=== PATIENT | male | born 1955 | race Caucasian/White ===

== ENCOUNTER 2020-03-28 19:08 | Emergency (ER) | payer BC ==
--- NOTE | 2020-03-28 19:40 | RAD REPORT ---
EXAM DESCRIPTION: RAD - Humerus Left - 03/28/2020 7:34 pm CLINICAL HISTORY: PAIN COMPARISON: No comparisons FINDINGS: Oblique mildly displaced fracture of the shaft of the humerus is seen.
--- NOTE | 2020-03-28 19:46 | RAD REPORT ---
EXAM DESCRIPTION: CT - [id number] - 03/28/2020 7:35 pm CLINICAL HISTORY: Trauma, head and neck injury. Fall injury COMPARISON: No comparisons TECHNIQUE: Axial 5 mm thick images of the head were obtained. Axial 2 mm thick images of the cervical spine were obtained with sagittal and coronal reconstruction images generated and reviewed. All CT scans are performed using dose optimization technique as appropriate and may include automated exposure control or mA/KV adjustment according to patient size. FINDINGS: CT HEAD WITHOUT CONTRAST: No acute hemorrhage, hydrocephalus or extra-axial collection is identified.No areas of brain edema or midline shift. The paranasal sinuses and mastoids are clear.The calvarium is intact. CT CERVICAL SPINE WITHOUT CONTRAST: No fracture or subluxation.Moderate multilevel degenerative cervical spondylosis.No prevertebral soft tissues swelling is identified. IMPRESSION: No acute intracranial or cervical spine findings.
--- NOTE | 2020-03-28 20:05 | ER ---
Nurse's Notes [facility] Name: William Romero Age: 64 yrs Sex: Male : 1955 Arrival Date: 03/28/2020 Time: 19:09 Bed 18 Private MD: Diagnosis: Displaced oblique fracture of shaft of humerus, left arm;Fall on same level from slipping, tripping and stumbling;Abrasion of unspecified part of head Presentation: 03/28 19:12 Chief complaint: EMS states: pt fell while walking, reports fell from a standing sg position while walking, miss step and fell forward, hitting left side of head with no LOC reported, pt reports taking baby aspirin 81 mg daily, states having pain in the left arm and left elbow, a splint has been applied by EMS DIFFERENTIAL TESTER. Abrasion noted to the left side of forehead with no active bleeding noted at this time. Coronavirus screen: Client denies travel out of the [place] in the last 14 days. At this time, the client does not indicate any symptoms associated with coronavirus-19. Ebola Screen: Patient negative for fever greater than or equal to 101.5 degrees Fahrenheit, and additional compatible Ebola Virus Disease symptoms Patient denies exposure to infectious person. Patient denies travel to an Ebola-affected area in the 21 days before illness onset. No symptoms or risks identified at this time. Initial Sepsis Screen: Does the patient meet any 2 criteria? No. Patient's initial sepsis screen is negative. Does the patient have a suspected source of infection? No. Patient's initial sepsis screen is negative. Risk Assessment: Do you want to hurt yourself or someone else? Patient reports no desire to harm self or others. Onset of symptoms was March 28, 2020. Care prior to arrival: Splint applied. Activity prior to arrival: None. Mechanism of Injury: Fall from standing position. Transition of care: patient was not received from another setting of care. 19:12 Acuity: KUSH 3 sg 19:12 Method Of Arrival: EMS: [facility] sg 19:45 Trauma event details: Injury occurred in the [facility], Injury occurred: at [facility] home. Injury occurred: March 28, 2020. 20:26 Care prior to arrival: None. mg2 20:27 Mechanism of Injury: Fall. [facility] Trauma Activation: Alert Physician: ED Physician; Name: ; Notified At: ; Arrived At: Physician: General Surgeon; Name: ; Notified At: ; Arrived At: Physician: Radiology; Name: ; Notified At: ; Arrived At: Physician: Respiratory; Name: ; Notified At: ; Arrived At: Physician: Lab; Name: ; Notified At: ; Arrived At: Historical: - Allergies: 19:15 No Known Allergies; sg - Home Meds: 19:15 Aspirin Oral [Active]; Metoprolol Tartrate Oral [Active]; Wellbutrin Oral [Active]; sg - PMHx: 19:15 Hypertension; Depression; sg - Immunization history:: Adult Immunizations up to date. - Social history:: Smoking status: Patient denies any tobacco usage or history of. - Immunization history: Last tetanus immunization: unknown. Screenin:43 Abuse screen: Denies threats or abuse. Denies injuries from another. Nutritional mg2 screening: No deficits noted. Tuberculosis screening: No symptoms or risk factors identified. Fall Risk Fall in past 12 months (25 points). Primary Survey: 19:44 NO uncontrolled hemorrhage observed. A: The patient is alert. Airway: patent, No mg2 supplemental oxygen in use on arrival. Breathing/Chest: Respiratory pattern: regular, Respiratory effort: spontaneous, unlabored, Breath sounds: clear, bilaterally. Circulation: Skin color: pink. Disability Alert. Exposure/Environment: All clothing and personal items were removed. Forensic evidence collection is not deemed to be indicated at this time. Items placed in patient belonging bag. There is no evidence of uncontrolled external bleeding. Obvious injury(ies) are noted at this time: left humerus fracture. 20:26 Reassessment Airway Airway Patent Breathing/Chest Respiratory pattern Regular mg2 Respiratory effort Spontaneous Unlabored Breath sounds Clear Circulation Color [place] Disability Alert. Secondary Survey: 19:45 HEENT: Head Other abrasion in the forehead. Gastrointestinal: No deficits noted. : No mg2 deficits noted. Musculoskeletal: Circulation, motion, and sensation intact. Capillary refill < 3 seconds. Assessment: 19:42 General: Appears in no apparent distress. comfortable, Behavior is calm, cooperative. mg2 Pain: Complains of pain in face and left arm Pain does not radiate. Pain currently is 2 out of 10 on a pain scale. Quality of pain is described as aching. Neuro: Level of Consciousness is awake, alert, obeys commands, Oriented to person, place, time, situation. Cardiovascular: Capillary refill < 3 seconds Patient's skin is warm and dry. Respiratory: Airway is patent Respiratory effort is even, unlabored, Respiratory pattern is regular, symmetrical. GI: No signs and/or symptoms were reported involving the gastrointestinal system. : No signs and/or symptoms were reported regarding the genitourinary system. EENT: No signs and/or symptoms were reported regarding the EENT system. Derm: Skin is pink, warm \T\ dry. normal, Wound noted forehead Wound is abrasion. Musculoskeletal: Circulation, motion, and sensation intact. Capillary refill < 3 seconds. Vital Signs: 19:12 BP 152 / 73; Pulse 89; Resp 16; Temp 97.7; Pulse Ox 100% on R/A; sg 20:26 BP 150 / 80; Pulse 80; Resp 18; Temp 98; Pulse Ox 100% on R/A; mg2 Brody Coma Score: 19:47 Eye Response: spontaneous(4). Verbal Response: oriented(5). Motor Response: obeys mg2 commands(6). Total: 15. Trauma Score (Adult): 19:47 Eye Response: spontaneous(1); Verbal Response: oriented(1); Motor Response: obeys mg2 commands(2); Systolic BP: > 89 mm Hg(4); Respiratory Rate: 10 to 29 per min(4); [place] Score: 15; Trauma Score: 12 ED Course: 19:09 Patient arrived in ED. mw2 19:12 Arm band placed on. sg 19:14 Triage completed. sg 19:15 Jerad Shen NP is PHCP. pm1 19:15 Brad Telles MD is Attending Physician. pm1 19:35 Humerus Left XRAY In Process Unspecified. EDMS 19:36 CT Head C Spine In Process Unspecified. EDMS 19:42 Artis Russell, ALEX is Primary Nurse. mg2 19:43 Patient has correct armband on for positive identification. Pulse ox on. NIBP on. Door mg2 closed. Warm blanket given. Ice pack to injury. 19:43 No provider procedures requiring assistance completed. Patient did not have IV access mg2 during this emergency room visit. 19:47 Patient maintains SpO2 saturation greater than 95% on room air. Thermoregulation: warm mg2 blanket given to patient. 20:25 Orthoglass splint: Coaptation splint applied on other. checked by the provider prior to mg2 dc. Administered Medications: 20:00 Drug: Barnhart 10 mg-325 mg 1 tabs Route: PO; mg2 20:15 Follow up: Response: No adverse reaction mg2 Intake: 19:47 PO: 0ml; Total: 0ml. mg2 Outcome: 20:05 Discharge ordered by . pm1 20:26 Discharged to home ambulatory. mg2 20:26 Condition: stable 20:26 Discharge instructions given to patient, Instructed on discharge instructions, follow up and referral plans. Demonstrated understanding of instructions, follow-up care, splint care. 20:27 Patient's length of stay was not longer than 2 hours. mg2 20:27 Patient left the ED. mg2 Signatures: Dispatcher [employer] EDWilliam Gamino, RN RN Jerad Carver NP HEARING AND SPEECH ASSISTANT pm1 Janice Kahn mw2 Artis Russell RN RN mg2
--- NOTE | 2020-03-28 20:05 | EDPHYS ---
Physician Documentation [facility] Name: William Romero Age: 64 yrs Sex: Male : 1955 Arrival Date: 03/28/2020 Time: 19:09 Bed 18 Private MD: ED Physician Brad Telles HPI: 03/28 19:36 This 64 yrs old Male presents to ER via EMS with complaints of Fall Injury. pm1 19:36 Details of fall: The patient fell from an upright position, while walking, and struck a pm1 concrete surface. Onset: The symptoms/episode began/occurred just prior to arrival. Associated injuries: The patient sustained left bicep. Severity of symptoms: in the emergency department the symptoms have improved, with sling by EMS. The patient has not experienced similar symptoms in the past. Patient was walking a missed a step and fell forward. Landed on his left arm and presenting with pain to left biceps area. Also hit his head on the fall. Has abrasion to left side of forehead. No LOC, headache, or neck pain. Historical: - Allergies: 19:15 No Known Allergies; sg - Home Meds: 19:15 Aspirin Oral [Active]; Metoprolol Tartrate Oral [Active]; Wellbutrin Oral [Active]; sg - PMHx: 19:15 Hypertension; Depression; sg - Immunization history:: Adult Immunizations up to date. - Social history:: Smoking status: Patient denies any tobacco usage or history of. - Immunization history: Last tetanus immunization: unknown. ROS: 19:36 Constitutional: Negative for fever, chills, and weight loss, Neck: Negative for injury, pm1 pain, and swelling, Cardiovascular: Negative for chest pain, palpitations, and edema, Respiratory: Negative for shortness of breath, cough, wheezing, and pleuritic chest pain, Abdomen/GI: Negative for abdominal pain, nausea, vomiting, diarrhea, and constipation, Back: Negative for injury and pain. 19:36 Skin: Negative for injury, rash, and discoloration, Neuro: Negative for headache, weakness, numbness, tingling, and seizure. 19:36 MS/extremity: Positive for pain, of the left bicep. Exam: 19:36 Constitutional: This is a well developed, well nourished patient who is awake, alert, pm1 and in no acute distress. 19:36 Back: No spinal tenderness. No costovertebral tenderness. Full range of motion. Skin: Warm, dry with normal turgor. Normal color with no rashes, no lesions, and no evidence of cellulitis. 19:36 Head/face: Noted is no obvious of injury or deformity except abrasion(s), that are mild, of the forehead. 19:36 Eyes: Exam is negative for acute changes, Periorbital structures: appear normal, Pupils: no acute changes, Extraocular movements: no acute changes. 19:36 Neck: External neck: crepitus, is not appreciated, swelling, is not appreciated, tenderness, is not appreciated, C-spine: vertebral tenderness, is not appreciated, ROM/movement: is normal, is supple. 19:36 Cardiovascular: Exam negative for acute changes, Rate: normal, Rhythm: regular, Pulses: no pulse deficits are appreciated. 19:36 Respiratory: Exam negative for acute changes, respiratory distress, shortness of breath. 19:36 Abdomen/GI: Inspection: obese Palpation: abdomen is soft and non-tender, in all quadrants. 19:36 Musculoskeletal/extremity: Circulation is intact in all extremities. Pulses: noted to be 2+ in the left radial artery, the left hand Vital Signs: 19:12 BP 152 / 73; Pulse 89; Resp 16; Temp 97.7; Pulse Ox 100% on R/A; sg 20:26 BP 150 / 80; Pulse 80; Resp 18; Temp 98; Pulse Ox 100% on R/A; mg2 Brody Coma Score: 19:47 Eye Response: spontaneous(4). Verbal Response: oriented(5). Motor Response: obeys mg2 commands(6). Total: 15. Trauma Score (Adult): 19:47 Eye Response: spontaneous(1); Verbal Response: oriented(1); Motor Response: obeys mg2 commands(2); Systolic BP: > 89 mm Hg(4); Respiratory Rate: 10 to 29 per min(4); [place] Score: 15; Trauma Score: 12 MDM: 19:15 Patient medically screened. pm1 19:21 ED course: Patient refused any pain medications. pm1 20:00 Data reviewed: vital signs. pm1 20:00 Counseling: I had a detailed discussion with the patient and/or guardian regarding: the pm1 historical points, exam findings, and any diagnostic results supporting the discharge/admit diagnosis, radiology results, the need for outpatient follow up, for definitive care, a orthopedic surgeon, to return to the emergency department if symptoms worsen or persist or if there are any questions or concerns that arise at home. 03/28 19:21 Order name: Humerus Left XRAY; Complete Time: 19:51 pm1 03/28 19:21 Order name: CT Head C Spine; Complete Time: 19:51 pm1 03/28 19:31 Order name: Sling; Complete Time: 20:00 pm1 03/28 19:33 Order name: Splint: coaptation splint; Complete Time: 20:00 pm1 Administered Medications: 20:00 Drug: Donald 10 mg-325 mg 1 tabs Route: PO; mg2 20:15 Follow up: Response: No adverse reaction mg2 Disposition: 03/29 06:59 Co-signature as Attending Physician, Brad Telles MD. pkvivi Disposition: 03/28/20 20:05 Discharged to Home. Impression: Displaced oblique fracture of shaft of humerus, left arm, Fall on same level from slipping, tripping and stumbling, Abrasion of unspecified part of head. - Condition is Stable. - Discharge Instructions: Cast or Splint Care, Adult, Humerus Fracture Treated With Immobilization, How to Use a Sling. - Medication Reconciliation Form, Thank You Letter, Antibiotic Education, Prescription Opioid Use form. - Follow up: Emergency Department; When: As needed; Reason: Worsening of condition. Follow up: Private Physician; When: 2 - 3 days; Reason: Recheck today's complaints, Continuance of care, Re-evaluation by your physician. - Problem is new. - Symptoms have improved. Signatures: Dispatcher [employer] William Snyder RN RN sg Lam, Pin, MD MD pkl Jerad Shen, SHIPYARD HELPER SHIPYARD HELPER pm1 Artis Russell RN RN mg2 Corrections: (The following items were deleted from the chart) 03/28 20:27 20:05 03/28/2020 20:05 Discharged to Home. Impression: Displaced oblique fracture of mg2 shaft of humerus, left arm; Fall on same level from slipping, tripping and stumbling; Abrasion of unspecified part of head. Condition is Stable. Forms are Medication Reconciliation Form, Thank You Letter, Antibiotic Education, Prescription Opioid Use. Follow up: Emergency Department; When: As needed; Reason: Worsening of condition. Follow up: Private Physician; When: 2 - 3 days; Reason: Recheck today's complaints, Continuance of care, Re-evaluation by your physician. Problem is new. Symptoms have improved. pm1
[2020-03-28] MEDS ORDERED: HYDROCODONE/APAP 10/325 TAB ONE (20:13)
[2020-03-28 20:38] VITALS: O2SAT 100
[2020-03-28 20:39] VITALS: BP 150/80; TEMP 98
== END 2020-03-28 20:27 | disposition home or self-care (01) ==
LOC: ER 19:08
PROC: 2W3DX1Z Immobilization of Left Lower Arm using Splint (ICD-10-PCS; principal; 2020-03-28)
DX: S42.332A Displaced oblique fracture of shaft of humerus, left arm, initial encounter for closed fracture (principal); S00.81XA Abrasion of other part of head, initial encounter; W01.0XXA Fall on same level from slipping, tripping and stumbling without subsequent striking against object, initial encounter; Y93.01 Activity, walking, marching and hiking; Y92.009 Unspecified place in unspecified non-institutional (private) residence as the place of occurrence of the external cause; I10 Essential (primary) hypertension; F32.9 Major depressive disorder, single episode, unspecified; Z79.82 Long term (current) use of aspirin
CPT/HCPCS: 70450; 72125; 99284; G0390

== ENCOUNTER 2021-05-10 12:57 | Emergency (ER) | payer MEDICARE, SELFPAY ==
--- OUTSIDE RECORDS SUMMARY | 2021-05-10 13:00 | XMS REPORT | Continuity of Care Document ---
:[address] [facility] t Address [address] Prasad. [address] [place] [address] Care Team Providers Name Role Phone BHAVYA Attending Clinician Unavailable MARLON Attending Clinician Unavailable DELFIN Attending Clinician Unavailable SPARKLE Attending Clinician Unavailable MD Kirill VILLAGRAN Attending Clinician Unavailable SHERLYN Attending Clinician Unavailable Lab, Fam Pob I Attending Clinician Unavailable Sherlyn DITTO MACHINE OPERATOR Attending Clinician SPARKLE Admitting Clinician Unavailable MD Kirill VILLAGRAN Admitting Clinician Unavailable Payers Payer Name Policy Type Policy Number Effective Date Expiration Date S [facility] [id number] 2020 (MEDICARE 00:00:00 REPLACEMENT HMO) [facility] [id number] 2018 00:00:00 Problems This patient has no known problems. Allergies, Adverse Reactions, Alerts Allergy Allergy Status Severity Reaction(s) Onset Inactive Treating Comm ents Source Name Type Date Date Clinician NO KNOWN Drug Active Univers ALLERGIE Class ity of S [facility] Social History Social Habit Start Date Stop Date Quantity Comments [facility] to [facility] Smoking Status Start Date Stop Date Source Unknown if ever smoked Universit y [facility] Medications This patient has no known medications. Procedures This patient has no known procedures. Encounters Start End Encounter Admission Attending Care Care Encounter Source Date/Time Date/Time Type Type Clinicians Facility Department ID 2021-04-17 2021-04-17 Outpatient [facility] [id number] [place] 00:00:00 00:00:[address] 2021-03-06 2021-03-06 Outpatient [facility] [id number] [address] [place] 00:00:00 00:00:[address] 2020-12-15 2020-12-15 Outpatient [facility] [id number] [place] 08:00:00 08:00:00 [facility] 2020-08-18 2020-08-18 Outpatient BHAVYA, [facility] [id number] [address] [place] 00:00:00 00:00:00 JASPAL [address] 2020-08-17 2020-08-17 Outpatient [facility] [id number] [place] 00:00:00 00:00:[address] 2020-08-17 2020-08-17 Outpatient MARLON, [facility] [id number] [address] [place] 00:00:00 00:00:00 DONTE [address] 2020-08-16 2020-08-16 Outpatient BHAVYA, [facility] [id number] [address] [place] 00:00:00 00:00:00 JASPAL [address] 2020-08-11 2020-08-11 Outpatient BHAVYA, [facility] [id number] [address] [place] 00:00:00 00:00:00 JASPAL [address] 2020-08-04 2020-08-04 Outpatient BHAVYA, [facility] [id number] [address] [place] 00:00:00 00:00:00 JASPAL [address] 2020-08-02 2020-08-02 Outpatient BHAVYA, [facility] [id number] [address] [place] 00:00:00 00:00:00 JASPAL [address] 2020-07-14 2020-07-14 Outpatient BHAVYA, [facility] [id number] [address] [place] 00:00:00 00:00:00 JASPAL [address] 2020-07-12 2020-07-12 Outpatient MARLON, [facility] [id number] [address] [place] 00:00:00 00:00:00 DONTE [address] 2020-07-07 2020-07-07 Outpatient MARLON, [facility] [id number] [address] [place] 00:00:00 00:00:00 DONTE [address] 2020-07-06 2020-07-06 Outpatient MARLON, [facility] [id number] [address] [place] 00:00:00 00:00:00 DONTE [address] 2020-07-06 2020-07-06 Outpatient [facility] [id number] [address] [place] 00:00:00 00:00:[address] 2020-07-05 2020-07-05 Outpatient WOODY, [facility] [id number] [address] [place] 00:00:00 00:00:00 DONTE [address] 2020-06-30 2020-06-30 Outpatient WOODY, [facility] [id number] [address] [place] 00:00:00 00:00:00 DONTE [address] 2020-06-23 2020-06-23 Outpatient WOODY, [facility] [id number] [address] [place] 00:00:00 00:00:00 DONTE [address] 2020-06-21 2020-06-21 Outpatient WOODY, [facility] [id number] [address] [place] 00:00:00 00:00:00 DONTE [address] 2020-06-16 2020-06-16 Outpatient WOODY, [facility] [id number] [address] [place] 00:00:00 00:00:00 DONTE [address] 2020-06-14 2020-06-14 Outpatient WOODY, [facility] [id number] [address] [place] 00:00:00 00:00:00 DONTE [address] 2020-06-10 2020-06-10 Outpatient WOODY, [facility] [id number] [place] 00:00:00 00:00:00 DONTE [address] 2020-06-02 2020-06-02 Outpatient SIFF, PEDRITO [facility] [id number] [place] 00:00:00 00:00:[address] 2020-06-02 2020-06-02 Outpatient [facility] [id number] [place] 00:00:00 00:00:[address] 2020-05-11 2020-05-11 Outpatient WOODY, [facility] [id number] [address] [place] 00:00:00 00:00:00 DONTE [address] 2020-05-11 2020-05-11 Outpatient [facility] [id number] [address] [place] 00:00:00 00:00:[address] 2020-04-13 2020-04-13 Outpatient MARLON, [facility] [id number] [address] [place] 00:00:00 00:00:00 DONTE [address] 2020-04-13 2020-04-13 Outpatient MARLON, [facility] [id number] [address] [place] 00:00:00 00:00:00 ODNTE [address] 2020-03-30 2020-04-02 Inpatient FAWAD VILLAGRAN [facility] [id number] [place] 00:00:00 00:00:[address] 2020-03-30 2020-03-30 Outpatient SIFF, PEDRITO [facility] [id number] [place] 00:00:00 00:00:[address] 2020-03-30 2020-03-30 Outpatient SIFF, PEDRITO [facility] [id number] [place] 00:00:00 00:00:[address] 2020-03-30 2020-03-30 Outpatient SIFF, PEDRITO [facility] [id number] [place] 00:00:00 00:00:[address] 2020-03-30 2020-03-30 Outpatient SIFF, PEDRITO [facility] [id number] [place] 00:00:00 00:00:[address] 2019-09-15 2019-09-15 Outpatient R SHELRYN, [facility] [id number] [facility] 11:40:00 11:40:00 NUPUR delacruz [facility] 2019-09-15 2019-09-15 Laboratory Lab, [facility] [id number] 11:27:09 11:32:00 Only [facility] [id number] [place] [id number] Professio [phone] [place] [address] Office [facility] One 2019-09-15 2019-09-15 Laboratory Lab, [facility] Fam Pob I [facility] [id number] [facility] 11:27:09 11:32:00 Only Nupur [place] [id number] ity of [place] [id number] [place] as Professio [phone] Me dical [address] One Results Test Description Test Time Test Comments Results Result Comments Source SARS-CoV-2 (COVID-19) RNA [Presence] in Respiratory sp ecimen by 2020-03-30 23:58:21 PATRICIA with probe detection Test Item Value Reference Range Interpretation Comme nts SARS-CoV-2 (COVID-19) RNA [Presence] in Respiratory Not detected No t-Detected specimen by PATRICIA with probe detection (test code = 01711-7) MR, EXTREMITY, LOWER, JOINT, WITHOUT CONTRAST, [id number] 17:36:00FINAL REPORT INDICATION:61-year-old male with left ankle and foot pain. Evaluate the Lisfranc joint. COMPARISON:None. TECHNIQUE: Multiplanar multisequence MRI of the left forefoot and midfoot was performed WITHOUT contrast.Multiplanar multisequence MRI of the left hindfoot and ankle was performed WITHOUT contrast. FINDINGS: There is subcutaneous edema of the anterior and lateral ankle and of the foot dorsum. No soft tissue collection or abscess is demonstrated. No fracture or malalignment is demonstrated. Focal marrow edema in the proximal third metatarsal is likely degenerative. Tibiotalar, subtalar, calcaneocuboid, talonavicular are intact. There is a longitudinal splittear of the peroneal longus tendon. Peroneal brevis tendon, tibialis posterior tendon, and flexor hallucis longus tendon are intact. There is fluid around the flexor digitorum longus tendon without signal abnormality or tear. Anterior talofibular ligament, posterior talofibular ligament, and calcaneofibular ligament are intact. Deltoid ligament intact. Tibiofibular ligaments intact. Lisfranc ligamentis intact. Achilles tendon is normal in size, morphology, and signal. Plantar fascia intact. No joint effusion. IMPRESSION:Subcutaneous edema of the ankle and foot dorsum without soft tissue collectionor abscess. No fracture or malalignment. Intact Lisfranc ligament. Longitudinal split tear of the peroneal longus tendon. Focal edema in the proximal third metatarsal, likely degenerative. Signed: Bill Travis MDReport Verified Date/Time: 03/07/2017 17:36:52 Reading Location: [address] Ortho Consult Reading Room MR, EXTREMITY, LOWER, WITHOUT CONTRAST, LEFT 2017-03-07 17:36:00Reason for Exam:->chronic foot pain, left ankle painFINAL REPORT INDICATION:61-year-old male with left ankle and foot pain. Evaluate the Lisfranc joint. COMPARISON:None. TECHNIQUE: Multiplanar multisequence MRI of the left forefoot and midfoot was performed WITHOUT contrast.Multiplanar multisequence MRI of the left hindfoot and ankle was performed WITHOUT contrast. FINDINGS: There is subcutaneous edema of the anterior and lateral ankle and of the foot dorsum. No soft tissue collection or abscess is demonstrated. No fracture or malalignment is demonstrated. Focal marrow edema in the proximal third metatarsal is likely degenerative. Tibiotalar, subtalar, calcaneocuboid, talonavicular are intact. There is a longitudinal splittear of the peroneal longus tendon. Peroneal brevis tendon, tibialis posterior tendon, and flexor hallucis longus tendon are intact. There is fluid around the flexor digitorum longus tendon without signal abnormality or tear. Anterior talofibular ligament, posterior talofibular ligament, and calcaneofibular ligament are intact. Deltoid ligament intact. Tibiofibular ligaments intact. Lisfranc ligamentis intact. Achilles tendon is normal in size, morphology, and signal. Plantar fascia intact. No joint effusion. IMPRESSION:Subcutaneous edema of the ankle and foot dorsum without soft tissue collectionor abscess. No fracture or malalignment. Intact Lisfranc ligament. Longitudinal split tear of the peroneal longus tendon. Focal edema in the proximal third metatarsal, likely degenerative. Signed: Bill Travis [facility] Verified Date/Time: 03/07/2017 17:36:52 Reading Location: [facility] C0X Ortho Consult Reading Room MR, EXTREMITY, LOWER, JOINT, WITHOUT CONTRAST, RIGHT 2017-03-07 16:46:00Reason for Exam:->RIGHT ANKLE PAINFINAL REPORT INDICATION:61-year-old male with right foot and ankle pain. Request to evaluate for foot ganglion and evaluate the ankle ligaments. COMPARISON:None. TECHNIQUE: Multiplanar multisequence MRI of the right forefoot was performed WITHOUT intravenous contrast.Multiplanar multisequence MRI of the right ankle, hindfoot, and midfoot was performed WITHOUT intravenous contrast. FINDINGS: There is extensive subcutaneous edema in the anterior and lateral ankle and of the foot dorsum. No soft tissue collection or abscess is demonstrated. There is fluid around the peroneal brevis and longus tendons which are thickened and increased in signal. The flexor hallucis longus tendon at the midportion is also thickened and of increased signal. Posterior tibialis and flexor digitorum tendons are intact. Anterior talofibular ligament, posterior talofibular ligament, and calcaneofibular ligament are intact. Deltoid ligament is intact. Tibiofibular ligaments are intact. No fracture of the ankle or hindfoot is demonstrated. No osteochondral lesion of the tibiotalar joint or subtalarjoint. Degenerative spurring at the talonavicular joint and naviculocuneiform joint without subchondral marrow edema. Achilles tendon is normal in size, signal, and morphology. Plantar fascia is intact. No fracture of the forefoot or midfoot is demonstrated. Focal subchondral marrow edema in the intermediate cuneiform is noted. No forefoot joint effusion or inflamed demonstrated. Lisfranc ligament is intact. IMPRESSION:Extensive subcutaneous edema of the anterior lateral ankle and foot dorsum without soft tissue collection or abscess. Tendinopathy of the peroneal brevis and longus tendons and of the flexor hallucis longus tendon. Intact ankle ligaments. Focal subchondral marrow edema in the intermediate cuneiform, likely degenerative. Signed: Bill Travis MDReport Verified Date/Time: 03/07/2017 16:46:37 Reading Location: [facility] [id number] Ortho Consult Reading Room MR, EXTREMITY, LOWER, WITHOUT CONTRAST, [id number] 16:46:00Reason for Exam:->RIGHT FOOT PAINFINAL REPORT INDICATION:61-year-old male with right foot and ankle pain. Request to evaluate for foot ganglion and evaluate the ankle ligaments. COMPARISON:None. TECHNIQUE: Multiplanar multisequence MRI of the right forefoot was performed WITHOUT intravenous contrast.Multiplanar multisequence MRI of the right ankle, hindfoot, and midfoot was performed WITHOUT intravenous contrast. FINDINGS: There is extensive subcutaneous edema in the anterior and lateral ankle and of the foot dorsum. No soft tissue collection or abscess is demonstrated. There is fluid around the peroneal brevis and longus tendons which are thickened and increased in signal. The flexor hallucis longus tendon at the midportion is also thickened and of increased signal. Posterior tibialis and flexor digitorum tendons are intact. Anterior talofibular ligament, posterior talofibular ligament, and calcaneofibular ligament are intact. Deltoid ligament is intact. Tibiofibular ligaments are intact. No fracture of the ankle or hindfoot is demonstrated. No osteochondral lesion of the tibiotalar joint or subtalarjoint. Degenerative spurring at the talonavicular joint and naviculocuneiform joint without subchondral marrow edema. Achilles tendon is normal in size, signal, and morphology. Plantar fascia is intact. No fracture of the forefoot or midfoot is demonstrated. Focal subchondral marrow edema in the intermediate cuneiform is noted. No forefoot joint effusion or inflamed demonstrated. Lisfranc ligament is intact.
[2021-05-10 14:40] LABS: Absolute Lymphocytes (CBC) 0.8 K/uL (0.7-4.9); Hematocrit 37.1 % (39.6-49.0); MPV 7.6 fL (7.6-11.3); RBC Red Blood Cell Count 4.06 M/uL (4.33-5.43)
--- NOTE | 2021-05-10 14:44 | RAD REPORT ---
EXAM DESCRIPTION: CT - Stone Protocol - 05/10/2021 2:34 pm CLINICAL HISTORY: Flank pain. CONSTIPATION COMPARISON: No comparisons TECHNIQUE: Axial images were obtained without oral or IV contrast. Lack of contrast limits solid org an and vascular assessment. The [id number] spans the entirety of the system partially obscuring uppermost abdomen and lung bases. Coronal reformatted images were obtained and reviewed. All CT scans are performed using dose optimization technique as appropriate and may include automated exposure control or mA/KV adjustment according to patient size. FINDINGS: The lower lung brooks are clear. Imaged portions of the liver and spleen show no suspicious findings on non-contrast imaging. The panc reas and adrenal glands are normal. No pathologic lymphadenopathy in the abdomen or pelvis. No urinary tract stones or obstructive uropathy. Benign cysts are present in both kidneys. No stone o r hydronephrosis. No bowel obstruction, free air, free fluid or abscess. Moderate stool is present in the colon. Sigmoi d diverticulosis. Normal appendix. Moderate lower lumbar degenerative changes. Prominent prostate gland. IMPRESSION: No urinary tract stones or obstructive uropathy. Prominent prostate gland noted. Benign bilateral renal cysts, benign appearance. Moderate constipation.
[2021-05-10 15:19] LABS: Bilirubin Direct 0.2 mg/dL (0-0.2); Bilirubin Total 0.6 mg/dL (0.2-1.0); Protein, Total 7.1 g/dL (6.4-8.2)
[2021-05-10] MEDS ORDERED: NA CHLORIDE 0.9% 1,000 ML ONE (15:38)
[2021-05-10 16:01] LABS: Urine Blood Trace-intact (Negative); Urine Glucose Negative (Negative); Urine Protein 2+ (Negative); Urine Specific Gravity 1.015 (1.005-1.030); Urine pH 6.5 (5.0-7.0)
--- NOTE | 2021-05-10 16:13 | ER ---
Nurse's Notes [facility] Name: William Romero Age: 65 yrs Sex: Male : 1955 Arrival Date: 05/10/2021 Time: 12:59 Bed 7 Private MD: Diagnosis: UTI/ Urinary tract infection, site not specified;Constipation Presentation: 05/10 13:35 Chief complaint: Patient states: on Saturday he noticed his bowels had become hardened, ap3 and he was having pain with urination. He reports taking stool softeners at that time. Patient states he has since had bowel movements, however it is difficult to pass. Coronavirus screen: At this time, the client does not indicate any symptoms associated with coronavirus-19. Ebola Screen: No symptoms or risks identified at this time. Initial Sepsis Screen: Does the patient meet any 2 criteria? No. Patient's initial sepsis screen is negative. Does the patient have a suspected source of infection? No. Patient's initial sepsis screen is negative. Risk Assessment: Do you want to hurt yourself or someone else? Patient reports no desire to harm self or others. Onset of symptoms was May 07, 2021. 13:35 Method Of Arrival: Ambulatory ap3 13:35 Acuity: KUSH 3 ap3 Triage Assessment: 13:40 General: Appears in no apparent distress. Behavior is calm, cooperative, appropriate ap3 for age. Pain: Denies pain. Neuro: Level of Consciousness is awake, alert, obeys commands, Oriented to person, place, time, situation, Appropriate for age. Respiratory: Airway is patent. GI: Reports constipation. : Reports pain with urination. Historical: - Allergies: 13:39 No Known Allergies; ap3 - PMHx: 13:39 Depression; Hypertension; ap3 13:39 kidney cyst; ap3 - Immunization history:: Client reports receiving the 2nd dose of the Covid vaccine, and booster Pneumococcal vaccine is up to date, Flu vaccine is not up to date. - Social history:: Smoking status: Patient denies any tobacco usage or history of. Screenin:40 Abuse screen: Denies threats or abuse. Nutritional screening: No deficits noted. ap3 Tuberculosis screening: No symptoms or risk factors identified. 14:54 Fall Risk Secondary diagnosis (15 points) Ambulatory Aid- Crutches/Cane/Walker (15 pts).tw2 Assessment: 14:22 Reassessment: Patient appears in no apparent distress at this time. No changes from tw2 previously documented assessment. Patient and/or family updated on plan of care and expected duration. Pain level reassessed. Patient is alert, oriented x 3, equal unlabored respirations, skin warm/dry/pink. provider at bedside at this time. 15:20 Reassessment: Patient appears in no apparent distress at this time. No changes from tw2 previously documented assessment. Patient and/or family updated on plan of care and expected duration. Pain level reassessed. Patient is alert, oriented x 3, equal unlabored respirations, skin warm/dry/pink. 16:40 Reassessment: Patient appears in no apparent distress at this time. No changes from tw2 previously documented assessment. Patient and/or family updated on plan of care and expected duration. Pain level reassessed. Patient is alert, oriented x 3, equal unlabored respirations, skin warm/dry/pink. Vital Signs: 13:35 BP 155 / 67 RA Sitting (auto/lg); Pulse 87; Resp 18; Temp 98.2; Pulse Ox 100% ; Weight ap3 176.9 kg; Height 6 ft. (182.88 cm); Pain 0/10; 14:53 BP 144 / 53; Pulse 79; Resp 17; Pulse Ox 97% on R/A; tw2 15:31 BP 149 / 73; Pulse 86; Resp 17; Pulse Ox 98% on R/A; tw2 16:40 BP 149 / 71; Pulse 84; Resp 17; Pulse Ox 97% on R/A; tw2 13:35 Body Mass Index 52.89 (176.90 kg, 182.88 cm) ap3 ED Course: 12:59 Patient arrived in ED. as 13:38 Triage completed. ap3 13:41 Arm band placed on left wrist. ap3 13:47 Placed in gown. Bed in low position. Side rails up X 1. Adult w/ patient. Pulse ox on. tw2 NIBP on. 13:50 Michelle Coyne FNP-C is PHCP. kb 13:50 Abraham Cotter MD is Attending Physician. kb 14:12 Neda Grewal RN is Primary Nurse. tw2 14:22 Inserted saline lock: 20 gauge in right antecubital area, using aseptic technique. tw2 Blood collected. 14:33 CT Stone Protocol In Process Unspecified. EDMS 16:02 Urine Microscopic Only Sent. tw2 16:40 No provider procedures requiring assistance completed. IV discontinued, intact, tw2 bleeding controlled, No redness/swelling at site. Pressure dressing applied. Administered Medications: 15:50 Drug: NS 0.9% 1000 ml Route: IV; Rate: 1000 ml; Site: right forearm; jh6 16:39 Follow up: Response: No adverse reaction; IV Status: Order to discontinue infusion; IV tw2 Intake: 300ml 16:36 Drug: Ciprofloxacin 500 mg Route: PO; tw2 16:41 Follow up: Response: No adverse reaction tw2 16:36 Drug: Dulcolax (bisacodyl) Delayed Release Tablet 5 mg Route: PO; tw2 16:41 Follow up: Response: No adverse reaction tw2 Intake: 16:39 IV: 300ml; Total: 300ml. tw2 Outcome: 16:13 Discharge ordered by . 16:40 Discharged to home ambulatory, with significant other. tw2 16:40 Condition: stable 16:40 Discharge instructions given to patient, significant other, Instructed on discharge instructions, follow up and referral plans. medication usage, Demonstrated understanding of instructions, follow-up care, medications, Prescriptions given X 1. 16:41 Patient left the ED. tw2 Addendum: 05/13/2021 07:07 Addendum: Culture Results: Positive urine culture. No further action required. Bacteria e b sensitive to prescribed antibiotic. Signatures: Dispatcher [employer] EDMS Michelle Coyne, CHAIR POST MACHINE OPERATOR-C CHAIR POST MACHINE OPERATOR-Cyndi Yi Tara, RN RN tw2 Traci Zuniga RN RN ap3 Elizabeth Doss Jennifer, RN RN jh6
--- NOTE | 2021-05-10 16:13 | EDPHYS ---
Physician Documentation [facility] Name: William Romero Age: 65 yrs Sex: Male : 1955 Arrival Date: 05/10/2021 Time: 12:59 Bed 7 Private MD: ED Physician Abraham Cotter HPI: 05/10 16:07 This 65 yrs old Male presents to ER via Ambulatory with complaints of Urinary kb Retention, Pain With Urination, Constipation. 16:07 The patient presents with urinary symptoms, dysuria, urinary frequency. The patient has kb not experienced similar symptoms in the past. The patient has not recently seen a physician. 16:10 Onset: The symptoms/episode began/occurred 4 day(s) ago. Modifying factors: The kb symptoms are alleviated by nothing, the symptoms are aggravated by urinating. Associated signs and symptoms: Pertinent positives: constipation, dysuria, Pertinent negatives: abdominal pain, diarrhea, fever, hematuria, nausea, vomiting. Severity of symptoms: At their worst the symptoms were moderate, in the emergency department the symptoms are unchanged. Pt reports dysuria, urinary frequency and constipation since Saturday. . Historical: - Allergies: 13:39 No Known Allergies; ap3 - PMHx: 13:39 Depression; Hypertension; ap3 13:39 kidney cyst; ap3 - Immunization history:: Client reports receiving the 2nd dose of the Covid vaccine, and booster Pneumococcal vaccine is up to date, Flu vaccine is not up to date. - Social history:: Smoking status: Patient denies any tobacco usage or history of. ROS: 16:06 Constitutional: Negative for fever, chills, and weight loss. kb 16:06 Abdomen/GI: Positive for constipation, Negative for abdominal pain, nausea, vomiting, and diarrhea. 16:06 : Positive for urinary frequency, burning with urination. 16:06 All other systems are negative. Exam: 16:06 Constitutional: This is a well developed, well nourished patient who is awake, alert, kb and in no acute distress. Head/Face: Normocephalic, atraumatic. ENT: Moist Mucous membranes Respiratory: Respirations even and unlabored. No increased work of breathing. Talking in full sentences Abdomen/GI: Soft, non-tender. No distention Skin: Warm, dry with normal turgor. Normal color. MS/ Extremity: Pulses equal, no cyanosis. Neurovascular intact. Full, normal range of motion. Neuro: Awake and alert, GCS 15, oriented to person, place, time, and situation. Moves all extremities. Normal gait. Psych: Awake, alert, with orientation to person, place and time. Behavior, mood, and affect are within normal limits. Vital Signs: 13:35 BP 155 / 67 RA Sitting (auto/lg); Pulse 87; Resp 18; Temp 98.2; Pulse Ox 100% ; Weight ap3 176.9 kg; Height 6 ft. (182.88 cm); Pain 0/10; 14:53 BP 144 / 53; Pulse 79; Resp 17; Pulse Ox 97% on R/A; tw2 15:31 BP 149 / 73; Pulse 86; Resp 17; Pulse Ox 98% on R/A; tw2 16:40 BP 149 / 71; Pulse 84; Resp 17; Pulse Ox 97% on R/A; tw2 13:35 Body Mass Index 52.89 (176.90 kg, 182.88 cm) ap3 MDM: 13:51 Patient medically screened. kb 16:06 Data reviewed: vital signs, nurses notes. Data interpreted: Pulse oximetry: on room air kb is 98 %. Interpretation: normal. Counseling: I had a detailed discussion with the patient and/or guardian regarding: the historical points, exam findings, and any diagnostic results supporting the discharge/admit diagnosis, lab results, radiology results, the need for outpatient follow up, a family practitioner, to return to the emergency department if symptoms worsen or persist or if there are any questions or concerns that arise at home. 05/10 14:06 Order name: Basic Metabolic Panel; Complete Time: 15:19 kb 05/10 14:06 Order name: CBC with Diff; Complete Time: 14:55 kb 05/10 14:06 Order name: Hepatic Function; Complete Time: 15:19 kb 05/10 14:06 Order name: Lipase; Complete Time: 15:19 kb 05/10 14:25 Order name: Urine Microscopic Only kb 05/10 16:01 Order name: Urine Dipstick-Ancillary EDMS 05/10 14:06 Order name: IV Saline Lock; Complete Time: 14:22 kb 05/10 14:06 Order name: Labs collected and sent; Complete Time: 14:22 kb 05/10 14:24 Order name: CT Stone Protocol; Complete Time: 14:55 kb 05/10 14:25 Order name: Urine Dipstick-Ancillary (obtain specimen); Complete Time: 16:02 kb 05/10 15:20 Order name: Urine Dipstick-Ancillary (obtain specimen); Complete Time: 16:02 kb Administered Medications: 15:50 Drug: NS 0.9% 1000 ml Route: IV; Rate: 1000 ml; Site: right forearm; jh6 16:39 Follow up: Response: No adverse reaction; IV Status: Order to discontinue infusion; IV tw2 Intake: 300ml 16:36 Drug: Ciprofloxacin 500 mg Route: PO; tw2 16:41 Follow up: Response: No adverse reaction tw2 16:36 Drug: Dulcolax (bisacodyl) Delayed Release Tablet 5 mg Route: PO; tw2 16:41 Follow up: Response: No adverse reaction tw2 Disposition Summary: 05/10/21 16:13 Discharge Ordered Location: Home kb Condition: Stable kb Diagnosis - UTI/ Urinary tract infection, site not specified kb - Constipation kb Followup: kb - With: Emergency Department - When: As needed - Reason: Worsening of condition Followup: kb - With: Private Physician - When: 2 - 3 days - Reason: Recheck today's complaints, Continuance of care, Re-evaluation by your physician Discharge Instructions: - Discharge Summary Sheet kb - Constipation, Adult, [id number] kb - Urinary Tract Infection, Adult, [id number]-[id number] kb Forms: - Medication Reconciliation Form kb - Thank You Letter kb - Antibiotic Education kb - Prescription Opioid Use kb Prescriptions: - Cipro 500 mg Oral Tablet - take 1 tablet by ORAL route every 12 hours for 7 days; 14 tablet; Refills: 0, kb Product Selection Permitted Signatures: Dispatcher [employer] Michelle Lopez FNP-C FNP-Neda Knox, RN RN tw2 Traci Zuniga RN RN ap3 Jemma Sandoval RN RN jh6
[2021-05-10] MEDS ORDERED: BISACODYL E.C. 5 MG TAB PO ONE (16:26)
[2021-05-10] MEDS ORDERED: CIPROFLOXACIN HCL 500 MG TAB ONE (16:26)
[2021-05-10 16:40] LABS: Urine Bacteria >50 /HPF (NONE SEEN); Urine RBC <5 /HPF (NONE SEEN)
[2021-05-10 17:12] VITALS: TEMP 98.2
[2021-05-10 17:22] VITALS: BP 149/71; O2SAT 97
== END 2021-05-10 16:41 | disposition home or self-care (01) ==
LOC: ER 12:57
DX: N39.0 Urinary tract infection, site not specified (principal); K59.00 Constipation, unspecified; I10 Essential (primary) hypertension
CPT/HCPCS: 87088; 85025; 87086; 80048; 36415; 80076; 87077; 87186; 83690; 76377; 74176; 96360; 99284; J7030; 81003; 81015

== ENCOUNTER 2021-08-17 11:38 | Observation (INO) | payer MEDICARE, OTHER ==
--- OUTSIDE RECORDS SUMMARY | 2021-08-17 11:40 | XMS REPORT | Continuity of Care Document ---
:1955 Author Organization [facility] t Address [address] [place] [address] Care Team Providers Name Role Phone BHAVYA Attending Clinician Unavailable MARLON Attending Clinician Unavailable DELFIN Attending Clinician Unavailable SPARKLE Attending Clinician Unavailable MD Kirill VILLAGRAN Attending Clinician Unavailable SHERLYN Attending Clinician Unavailable Lab, Fam Pob I Attending Clinician Unavailable Sherlyn CHEMICAL PATHOLOGIST Attending Clinician SPARKLE Admitting Clinician Unavailable MD Kirill VILLAGRAN Admitting Clinician Unavailable Payers Payer Name Policy Type Policy Number Effective Date Expiration Date S [facility] [id number] 2020 (MEDICARE 00:00:00 REPLACEMENT HMO) [facility] [id number] 2018 00:00:00 Problems This patient has no known problems. Allergies, Adverse Reactions, Alerts Allergy Allergy Status Severity Reaction(s) Onset Inactive Treating Comm ents Source Name Type Date Date Clinician NO KNOWN Drug Active Univers ALLERGIE Class ity of S [facility] Social History Social Habit Start Date Stop Date Quantity Comments [facility] to [facility] Smoking Status Start Date Stop Date Source Unknown if ever smoked [facility] y [facility] Medications This patient has no known medications. Procedures This patient has no known procedures. Encounters Start End Encounter Admission Attending Care Care Encounter Source Date/Time Date/Time Type Type Clinicians Facility Department ID 2021-05-22 2021-05-22 Outpatient [facility] [id number] 00:00:00 00:00:[address] 2021-04-17 2021-04-17 Outpatient [facility] [id number] 00:00:00 00:00:[address] 2021-03-06 2021-03-06 Outpatient [facility] [id number] [place] 00:00:00 00:00:[address] 2020-12-15 2020-12-15 Outpatient [facility] [id number] [place] 08:00:00 08:00:00 [facility] 2020-08-18 2020-08-18 Outpatient BHAVYA, [facility] [id number] 00:00:00 00:00:00 JASPAL [address] 2020-08-17 2020-08-17 Outpatient [facility] [id number] [place] 00:00:00 00:00:[address] 2020-08-17 2020-08-17 Outpatient MARLON, [facility] [id number] 00:00:00 00:00:00 DONTE [address] 2020-08-16 2020-08-16 Outpatient BHAVYA, [facility] [id number] 00:00:00 00:00:00 JASPAL [address] 2020-08-11 2020-08-11 Outpatient BHAVYA, [facility] [id number] 00:00:00 00:00:00 JASPAL [address] 2020-08-04 2020-08-04 Outpatient BHAVYA, [facility] [id number] 00:00:00 00:00:00 JASPAL [address] 2020-08-02 2020-08-02 Outpatient BHAVYA, [facility] [id number] 00:00:00 00:00:00 JASPAL [address] 2020-07-14 2020-07-14 Outpatient BHAVYA, [facility] [id number] [place] 00:00:00 00:00:00 JASPAL [address] 2020-07-12 2020-07-12 Outpatient MARLON, [facility] [id number] [place] 00:00:00 00:00:00 DONTE [address] 2020-07-07 2020-07-07 Outpatient MARLON, [facility] [id number] [place] 00:00:00 00:00:00 DONTE [address] 2020-07-06 2020-07-06 Outpatient WOODY, [facility] [id number] [place] 00:00:00 00:00:00 DONTE [address] 2020-07-06 2020-07-06 Outpatient [facility] [id number] [place] 00:00:00 00:00:[address] 2020-07-05 2020-07-05 Outpatient WOODY, [facility] [id number] [place] 00:00:00 00:00:00 DONTE [address] 2020-06-30 2020-06-30 Outpatient WOODY, [facility] [id number] [place] 00:00:00 00:00:00 DONTE [address] 2020-06-23 2020-06-23 Outpatient WOODY, [facility] [id number] [place] 00:00:00 00:00:00 DONTE [address] 2020-06-21 2020-06-21 Outpatient WOODY, [facility] [id number] [place] 00:00:00 00:00:00 DONTE [address] 2020-06-16 2020-06-16 Outpatient WOODY, [facility] [id number] [place] 00:00:00 00:00:00 DONTE [address] 2020-06-14 2020-06-14 Outpatient WOODY, [facility] [id number] [place] 00:00:00 00:00:00 DONTE [address] 2020-06-10 2020-06-10 Outpatient WOODY, [facility] [id number] [place] 00:00:00 00:00:00 DONTE [address] 2020-06-02 2020-06-02 Outpatient SIFF, PEDRITO [facility] [id number] [place] 00:00:00 00:00:[address] 2020-06-02 2020-06-02 Outpatient [facility] [id number] [place] 00:00:00 00:00:[address] 2020-05-11 2020-05-11 Outpatient WOODY, [facility] [id number] [place] 00:00:00 00:00:00 DONTE [address] 2020-05-11 2020-05-11 Outpatient [facility] [id number] [place] 00:00:00 00:00:[address] 2020-04-13 2020-04-13 Outpatient MARLON [facility] [id number] [place] 00:00:00 00:00:00 DONTE [address] 2020-04-13 2020-04-13 Outpatient MARLON [facility] [id number] [place] 00:00:00 00:00:00 DONTE [address] 2020-03-30 2020-04-02 Inpatient FAWAD VILLAGRAN [facility] 012 [id number] [place] 00:00:00 00:00:[address] 2020-03-30 2020-03-30 Outpatient SIFPEDRITO Michaels [facility] [id number] [place] 00:00:00 00:00:[address] 2020-03-30 2020-03-30 Outpatient SIFPEDRITO Michaels [facility] [id number] [place] 00:00:00 00:00:[address] 2020-03-30 2020-03-30 Outpatient SIFF, PEDRITO [facility] [id number] [place] 00:00:00 00:00:[address] 2020-03-30 2020-03-30 Outpatient SIFXenia, PEDRITO [facility] [id number] [place] 00:00:00 00:00:00 [address] [facility] 2019-09-15 2019-09-15 Outpatient R SHERLYN [facility] [id number] [facility] 11:40:00 11:40:00 NUPUR delacruz [facility] 2019-09-15 2019-09-15 Laboratory Lab, [facility] Fam Pob I [facility] [id number]. [id number] [facility] 11:27:09 11:32:00 Only Nupur [place] [id number] nubia [facility] [id number] Bandar as Shalonda [phone] [address] One 2019-09-15 2019-09-15 Laboratory Lab, [facility] [id number] 11:27:09 11:32:00 Only [facility] [id number] [place] [id number] [facility] [phone] [facility] [address] One Results Test Description Test Time Test Comments Results Result Comments Source SARS-CoV-2 (COVID-19) RNA [Presence] in Respiratory sp ecimen by 2020-03-30 23:58:21 PATRICIA with probe detection Test Item Value Reference Range Interpretation Comme nts SARS-CoV-2 (COVID-19) RNA [Presence] in Respiratory Not detected No t-Detected specimen by PATRICIA with probe detection (test code = 80240-3) MR, EXTREMITY, LOWER, JOINT, WITHOUT CONTRAST, [id number] 17:36:00FINAL REPORT INDICATION:61-year-old male with left ankle [...] MDReport Verified Date/Time: 03/07/2017 17:36:52 Reading Location: [facility] B1 C013X Ortho Consult Reading Room MR, EXTREMITY, [...] MDReport Verified Date/Time: 03/07/2017 17:36:52 Reading Location: [facility] B1 C013X Ortho Consult Reading Room MR, EXTREMITY, [...] intermediate cuneiform, likely degenerative. Signed: Bill Travis [facility] Verified Date/Time: 03/07/2017 16:46:37 Reading Location: [facility] C013X Ortho Consult Reading Room MR, EXTREMITY, LOWER, WITHOUT CONTRAST, [id number] 16:46:00Reason for Exam:->RIGHT FOOT PAINFINAL REPORT INDICATION:61-year-old [...] MDReport Verified Date/Time: 03/07/2017 16:46:37 Reading Location: [facility] B1 C013X Ortho Consult Reading Room
[2021-08-17 12:08] LABS: Absolute Lymphocytes (CBC) 1.5 K/uL (0.7-4.9); Hematocrit 42.1 % (39.6-49.0); Lymphocytes % 16.2 % (15.3-44.8); MPV 7.9 fL (7.6-11.3)
[2021-08-17 12:11] LABS: Protime INR 1.11
[2021-08-17] MEDS ORDERED: METOPROLOL TAR 50 MG TAB ONE (12:11)
[2021-08-17] MEDS ORDERED: DIGOXIN 0.25 MG/ML AMP ONE (12:12)
[2021-08-17] MEDS ORDERED: ENOXAPARIN 100 MG/ML SYR SQ ONE (12:12)
[2021-08-17] MEDS ORDERED: METOPROLOL TARTRATE 5 MG/5 ML INJ IV ONE ×3 (12:13→15:53)
[2021-08-17] MEDS ORDERED: NA CHLORIDE 0.9% 500 ML ONE (12:13)
[2021-08-17] MEDS ORDERED: NA CHLORIDE 0.9% 1,000 ML ONE (12:13)
--- NOTE | 2021-08-17 12:22 | RAD REPORT ---
EXAM DESCRIPTION: RAD - Chest Single View - 08/17/2021 12:13 pm CLINICAL HISTORY: Chest pain COMPARISON: No comparisons FINDINGS: Lines: None. Lungs: Prominence of the central pulmonary vasculature. There is underpenetration. The left lung base is in particular not well-visualized. Pleural: No significant pleural effusions or pneumothorax. Cardiac: The heart size is within normal limits. Bones: No acute fractures. Other: IMPRESSION: Question vascular congestion. Lungs are not well evaluated due to low lung volumes and u nderpenetration. Could consider a standard PA and lateral when the patient's condition permits.
[2021-08-17 12:32] LABS: Albumin 3.5 g/dL (3.4-5.0); Bilirubin Direct 0.1 mg/dL (0-0.2); Bilirubin Total 0.3 mg/dL (0.2-1.0); Magnesium 1.8 mg/dL (1.8-2.4); Potassium 4.2 mmol/L (3.5-5.1); Protein, Total 7.3 g/dL (6.4-8.2); Thyroid Stimulating Hormone 0.963 uIU/mL (0.360-3.740); Troponin High Sensitivity 9.4 pg/mL (<58.9)
[2021-08-17] MEDS ORDERED: Magnesium Sulfate 2gm IVPB 2 G/50 ML BAG IV ONE (12:54)
--- NOTE | 2021-08-17 13:12 | EDPHYS ---
Physician Documentation [facility] Name: William Romero Age: 65 yrs Sex: Male : 1955 Arrival Date: 08/17/2021 Time: 11:39 Bed 4 Private MD: ED Physician Ricardo Tarango HPI: 08/17 12:15 This 65 yrs old Male presents to ER via Ambulatory with complaints of afib. jey 12:15 The patient or guardian reports chest pain that is located primarily in the substernal jey area. Onset: just prior to arrival, this morning. The patient presents with a history of irregular heart beat, heart racing. Context: The symptoms occur with light activity. Onset: The symptoms/episode began/occurred this morning, today. Duration: The patient or guardian reports a single episode, that is still ongoing. Modifying factors: The symptoms are aggravated by nothing. The symptoms are alleviated by nothing. The pain does not radiate. Historical: - Home Meds: 11:42 metoprolol tartrate 50 mg oral tab 1 tab 2 times per day [Active]; Wellbutrin Oral tw2 [Active]; Aspirin Oral [Active]; amlodipine oral [Active]; 11:43 tamsulosin oral [Active]; Adderall XR Oral [Active]; tw2 - PMHx: 11:42 Depression; Hypertension; Kidney Cyst; tw2 - Immunization history:: Client reports receiving the 2nd dose of the Covid vaccine. - Social history:: Smoking status: Patient denies any tobacco usage or history of. - Family history:: not pertinent. ROS: 12:15 Constitutional: Negative for fever, chills, and weight loss, Eyes: Negative for injury, jey pain, redness, and discharge, ENT: Negative for injury, pain, and discharge, Neck: Negative for injury, pain, and swelling, Respiratory: Negative for shortness of breath, cough, wheezing, and pleuritic chest pain, Abdomen/GI: Negative for abdominal pain, nausea, vomiting, diarrhea, and constipation, Back: Negative for injury and pain, : Negative for injury, bleeding, discharge, and swelling, MS/Extremity: Negative for injury and deformity, Skin: Negative for injury, rash, and discoloration, Neuro: Negative for headache, weakness, numbness, tingling, and seizure, Psych: Negative for depression, anxiety, suicide ideation, homicidal ideation, and hallucinations, Allergy/Immunology: Negative for hives, rash, and allergies, Endocrine: Negative for neck swelling, polydipsia, polyuria, polyphagia, and marked weight changes, Hematologic/Lymphatic: Negative for swollen nodes, abnormal bleeding, and unusual bruising. 12:15 Cardiovascular: Positive for palpitations. Exam: 12:15 Constitutional: This is a well developed, well nourished patient who is awake, alert, jey and in no acute distress. Head/Face: Normocephalic, atraumatic. Eyes: Pupils equal round and reactive to light, extra-ocular motions intact. Lids and lashes normal. Conjunctiva and sclera are non-icteric and not injected. Cornea within normal limits. Periorbital areas with no swelling, redness, or edema. ENT: Nares patent. No nasal discharge, no septal abnormalities noted. Tympanic membranes are normal and external auditory canals are clear. Oropharynx with no redness, swelling, or masses, exudates, or evidence of obstruction, uvula midline. Mucous membranes moist. Neck: Trachea midline, no thyromegaly or masses palpated, and no cervical lymphadenopathy. Supple, full range of motion without nuchal rigidity, or vertebral point tenderness. No Meningismus. Chest/axilla: Normal chest wall appearance and motion. Nontender with no deformity. No lesions are appreciated. Respiratory: Lungs have equal breath sounds bilaterally, clear to auscultation and percussion. No rales, rhonchi or wheezes noted. No increased work of breathing, no retractions or nasal flaring. Abdomen/GI: Soft, non-tender, with normal bowel sounds. No distension or tympany. No guarding or rebound. No evidence of tenderness throughout. Back: No spinal tenderness. No costovertebral tenderness. Full range of motion. Male : Normal genitalia with no discharge or lesions. Skin: Warm, dry with normal turgor. Normal color with no rashes, no lesions, and no evidence of cellulitis. MS/ Extremity: Pulses equal, no cyanosis. Neurovascular intact. Full, normal range of motion. Neuro: Awake and alert, GCS 15, oriented to person, place, time, and situation. Cranial nerves II-XII grossly intact. Motor strength 5/5 in all extremities. Sensory grossly intact. Cerebellar exam normal. Normal gait. Psych: Awake, alert, with orientation to person, place and time. Behavior, mood, and affect are within normal limits. 12:15 Cardiovascular: Rate: tachycardic, Rhythm: irregular, Pulses: Pulses are 4+ in bilateral radial, brachial, femoral, popliteal, posterior tibial and and dorsalis pedis arteries.. Heart sounds: normal, Edema: is not appreciated, JVD: is not appreciated. 12:15 ECG was reviewed by the Attending Physician. Vital Signs: 11:41 BP 158 / 97; Pulse 170; Resp 19; Temp 98.3(TE); Pulse Ox 97% on R/A; Weight 179.17 kg tw2 (R); Height 6 ft. (182.88 cm); Pain 0/10; 12:34 BP 149 / 131; Pulse 131; Resp 20; Pulse Ox 97% on R/A; ware 13:00 BP 120 / 85; Pulse 111; Resp 19; Pulse Ox 97% on R/A; ware 13:18 BP 151 / 62; Pulse 56; Resp 19; Pulse Ox 97% ; ware 13:30 BP 162 / 130; Pulse 133; Resp 19; Pulse Ox 98% on R/A; ware 13:57 BP 128 / 76; Pulse 97; Resp 19; Pulse Ox 97% on R/A; ware 15:45 BP 132 / 63; Pulse 84; Resp 19; Pulse Ox 99% on R/A; ware 11:41 Body Mass Index 53.57 (179.17 kg, 182.88 cm) tw2 MDM: 11:51 Patient medically screened. jey 12:18 Differential diagnosis: abnormal EKG, anxiety, arrythmia, dehydration, stable angina, jey unstable angina. HEART Score: History: Slightly Suspicious (0), ECG: Non specific repolarization disturbance / LBTB / PM (1), Age: > 45 and < 65 years (1), Risk Factors: > or = 3 Risk factors for atherosclerotic disease (2), [Hypercholesterolemia] [Hypertension] [+ Family HX] [Obesity] Troponin: < or = 1 x Normal Limit (0). The patient was given aspirin in the Emergency Department. The patient's deep vein thrombosis risk score was calculated as follows: Total Score: 0. This patient was found to be at low risk for a deep vein thrombosis by using the Well's assessment criteria. The patient's pulmonary embolism risk score was calculated as follows: the patients heart rate is greater than 100 beats per minute (1.5 Pts) Total Score: 0-2 points. This patient was found to be at low risk for a pulmonary embolism by using the Well's assessment criteria. TRISTA Risk Score: TOTAL SCORE = 0. Data reviewed: vital signs, nurses notes, lab test result(s), EKG, radiologic studies, plain films. Data interpreted: traffic monitor specialist: rate is 170 beats/min, rhythm is atrial fibrillation, Pulse oximetry: on room air is 97 %. Test interpretation: by ED physician or midlevel provider: ECG, plain radiologic studies. Counseling: I had a detailed discussion with the patient and/or guardian regarding: the historical points, exam findings, and any diagnostic results supporting the discharge/admit diagnosis, the presence of at least one elevated blood pressure reading (>120/80) during this emergency department visit, lab results, radiology results, the need for further work-up and treatment in the hospital. 08/17 11:54 Order name: Basic Metabolic Panel; Complete Time: 13:10 [facility] 08/17 11:54 Order name: CBC with Diff; Complete Time: 13:10 [facility] 08/17 11:54 Order name: LFT's; Complete Time: 13:10 [facility] 08/17 11:54 Order name: Magnesium; Complete Time: 13:10 [facility] 08/17 11:54 Order name: NT PRO-BNP; Complete Time: 13:10 [facility] 08/17 11:54 Order name: PT-INR; Complete Time: 13:10 [facility] 08/17 11:54 Order name: Troponin HS; Complete Time: 13:10 [facility] 08/17 11:54 Order name: XRAY Chest (1 view); Complete Time: 13:10 [facility] 08/17 11:54 Order name: TSH; Complete Time: 13:10 [facility] 08/17 11:54 Order name: SARS-COV-2 RT PCR (Document "Date of Onset" if Symptomatic); Complete Time: jey 13:10 08/17 15:43 Order name: Echo with Doppler [facility] 08/17 11:54 Order name: EKG; Complete Time: 11:55 [facility] 08/17 11:54 Order name: Cardiac monitoring; Complete Time: 11:57 [facility] 08/17 11:54 Order name: EKG - Nurse/Tech; Complete Time: 11:57 [facility] 08/17 11:54 Order name: IV Saline Lock; Complete Time: 57 [facility] 08/17 11:54 Order name: Labs collected and sent; Complete Time: [facility] 08/17 11:54 Order name: O2 Per Protocol; Complete Time: 57 [facility] 08/17 11:54 Order name: O2 Sat Monitoring; Complete Time: :57 [facility] EC:15 Rate is 151 beats/min. Rhythm is irregularly irregular. QRS [place] is Normal. SD interval jey is normal. QRS interval is normal. QT interval is normal. No Q waves. T waves are Normal. No ST changes noted. Clinical impression: Atrial Fibrillation and No evidence of ischemia. Interpreted by me. Reviewed by me. Administered Medications: 12:31 Drug: Digoxin 0.5 mg Route: IVP; Site: left antecubital; ware 12:33 Follow up: Response: No adverse reaction ware 12:32 Drug: NS 0.9% 500 ml Route: IV; Rate: bolus; Site: left antecubital; ware 16:21 Follow up: IV Status: Completed infusion ware 12:32 Drug: NS 0.9% 1000 ml Route: IV; Rate: 125 ml/hr; Site: left antecubital; ware 12:32 Drug: Lopressor (metoprolol) 5 mg Route: IVP; Site: left antecubital; ware 12:32 Drug: Lopressor (metoprolol TARTRATE) 50 mg Route: PO; ware 12:33 Follow up: Response: No adverse reaction ware 12:32 Drug: Lovenox (enoxaparin) 100 mg Route: Sub-Q; Site: left lower abdomen; ware 12:33 Follow up: Response: No adverse reaction awre 13:35 Drug: Lopressor (metoprolol) 5 mg Route: IVP; Site: left antecubital; ware 13:39 Not Given (Physician Discretion): Magnesium Sulfate 1 grams IVPB once over 1 hrs ware 13:39 Drug: Magnesium Sulfate 2 grams Route: IVPB; Infused Over: 2 hrs; Site: left ware antecubital; 16:20 Follow up: IV Status: Completed infusion ware 16:21 Drug: Lopressor (metoprolol) 5 mg Route: IVP; Site: left antecubital; ware 16:21 Follow up: Response: No adverse reaction ware Disposition Summary: 08/17/21 13:12 Hospitalization Ordered Hospitalization Status: Observation jey Provider: Adán Card cha Location: Telemetry/MedSurg (observation) jey Condition: Fair jey Problem: new jey Symptoms: have improved jey Bed/Room Type: Standard jey Room Assignment: 401(08/17/21 16:14) dw Diagnosis - Paroxysmal atrial fibrillation - with RVR jey - Obesity, unspecified jey - Palpitations jey Forms: - Medication Reconciliation Form jey - SBAR form jey Signatures: Dispatcher [employer] Tawnya Gamble RN RN Ricardo Goyal MD MD cha Wise, Tara RN RN tw2 Caro Hughes RN RN ware Corrections: (The following items were deleted from the chart) 16:14 13:12 jey dw
--- NOTE | 2021-08-17 13:12 | ER ---
Nurse's Notes [facility] Name: William Romero Age: 65 yrs Sex: Male : 1955 Arrival Date: 08/17/2021 Time: 11:39 Bed 4 Private MD: Diagnosis: Paroxysmal atrial fibrillation-with RVR;Obesity, unspecified;Palpitations Presentation: 08/17 11:41 Chief complaint: Patient states: it started about 30 minutes ago. i was just sitting tw2 watching tv. Coronavirus screen: At this time, the client does not indicate any symptoms associated with coronavirus-19. Ebola Screen: Patient denies travel to an Ebola-affected area in the 21 days before illness onset. Initial Sepsis Screen: Does the patient meet any 2 criteria? No. Patient's initial sepsis screen is negative. Does the patient have a suspected source of infection? No. Patient's initial sepsis screen is negative. Risk Assessment: Do you want to hurt yourself or someone else? Patient reports no desire to harm self or others. Onset of symptoms was August 17, 2021. 11:41 Method Of Arrival: Ambulatory tw2 11:41 Acuity: KUSH 2 tw2 Triage Assessment: 11:43 General: Appears in no apparent distress. obese, well groomed, Behavior is calm, tw2 cooperative, appropriate for age. Pain: Denies pain. Cardiovascular: Reports chest tightness. Historical: - Home Meds: 11:42 metoprolol tartrate 50 mg oral tab 1 tab 2 times per day [Active]; Wellbutrin Oral tw2 [Active]; Aspirin Oral [Active]; amlodipine oral [Active]; 11:43 tamsulosin oral [Active]; Adderall XR Oral [Active]; tw2 - PMHx: 11:42 Depression; Hypertension; Kidney Cyst; tw2 - Immunization history:: Client reports receiving the 2nd dose of the Covid vaccine. - Social history:: Smoking status: Patient denies any tobacco usage or history of. - Family history:: not pertinent. Screenin:49 Abuse screen: Denies threats or abuse. Nutritional screening: No deficits noted. tw2 Tuberculosis screening: No symptoms or risk factors identified. Fall Risk None identified. Assessment: 12:30 General: Appears in no apparent distress. Pain: Denies pain. Cardiovascular: Reports ware diaphoresis, palpitations, Patient's skin is warm and dry. Rhythm is atrial fibrillation With PVC's. Vital Signs: 11:41 BP 158 / 97; Pulse 170; Resp 19; Temp 98.3(TE); Pulse Ox 97% on R/A; Weight 179.17 kg tw2 (R); Height 6 ft. (182.88 cm); Pain 0/10; 12:34 BP 149 / 131; Pulse 131; Resp 20; Pulse Ox 97% on R/A; ware 13:00 BP 120 / 85; Pulse 111; Resp 19; Pulse Ox 97% on R/A; ware 13:18 BP 151 / 62; Pulse 56; Resp 19; Pulse Ox 97% ; ware 13:30 BP 162 / 130; Pulse 133; Resp 19; Pulse Ox 98% on R/A; ware 13:57 BP 128 / 76; Pulse 97; Resp 19; Pulse Ox 97% on R/A; ware 15:45 BP 132 / 63; Pulse 84; Resp 19; Pulse Ox 99% on R/A; ware 11:41 Body Mass Index 53.57 (179.17 kg, 182.88 cm) tw2 ED Course: 11:39 Patient arrived in ED. am2 11:42 Triage completed. tw2 11:43 Arm band placed on. tw2 11:44 Placed in gown. Bed in low position. Adult w/ patient. Client placed on continuous tw2 cardiac and pulse oximetry monitoring. NIBP monitoring applied. Niyah VANG in room with EKG machine at this time. EKG to be performed. 11:51 Ricardo Tarango MD is Attending Physician. jey 11:57 Inserted saline lock: 20 gauge in right wrist, using aseptic technique. Blood collected.ap3 12:02 Caro Hughes, ALEX is Primary Nurse. ware 12:15 XRAY Chest (1 view) In Process Unspecified. EDMS 12:30 No provider procedures requiring assistance completed. Inserted saline lock: 20 gauge ware in left antecubital area, using aseptic technique. 13:11 Adán Card is Hospitalizing Provider. jey 16:33 Patient admitted, IV remains in place. ware Administered Medications: 12:31 Drug: Digoxin 0.5 mg Route: IVP; Site: left antecubital; ware 12:33 Follow up: Response: No adverse reaction ware 12:32 Drug: NS 0.9% 500 ml Route: IV; Rate: bolus; Site: left antecubital; ware 16:21 Follow up: IV Status: Completed infusion ware 12:32 Drug: NS 0.9% 1000 ml Route: IV; Rate: 125 ml/hr; Site: left antecubital; ware 12:32 Drug: Lopressor (metoprolol) 5 mg Route: IVP; Site: left antecubital; ware 12:32 Drug: Lopressor (metoprolol TARTRATE) 50 mg Route: PO; ware 12:33 Follow up: Response: No adverse reaction ware 12:32 Drug: Lovenox (enoxaparin) 100 mg Route: Sub-Q; Site: left lower abdomen; ware 12:33 Follow up: Response: No adverse reaction ware 13:35 Drug: Lopressor (metoprolol) 5 mg Route: IVP; Site: left antecubital; ware 13:39 Not Given (Physician Discretion): Magnesium Sulfate 1 grams IVPB once over 1 hrs ware 13:39 Drug: Magnesium Sulfate 2 grams Route: IVPB; Infused Over: 2 hrs; Site: left ware antecubital; 16:20 Follow up: IV Status: Completed infusion ware 16:21 Drug: Lopressor (metoprolol) 5 mg Route: IVP; Site: left antecubital; ware 16:21 Follow up: Response: No adverse reaction ware Medication: 12:30 VIS not applicable for this client. ware Outcome: 13:12 Decision to Hospitalize by Provider. [facility] 16:33 Admitted to Tele accompanied by tech, room 401. ware 16:33 Condition: good 16:33 Instructed on the need for admit. 16:34 Patient left the ED. ware Signatures: Dispatcher [employer] Ricardo Vaca MD MD cha Wise, Tara, RN RN [email or web address] Traci Casarez Amanda, RN RN ap3 Caro Hughes RN RN ware
--- NOTE | 2021-08-17 14:41 | P.HP ---
Certification for Inpatient Patient admitted to: Observation With expected LOS: <2 Midnights Practitioner: I am a practitioner with admitting privileges, knowledge of patient current condition, hospital course, and medical plan of care. Services: Services provided to patient in accordance with Admission requirements found in Title 42 Section 412.3 of the Code of Federal Regulations Patient History Date of Service: 08/17/21 Reason for admission: Palpitation History of Present Illness: 65-year-old morbidly obese gentleman with remote history of atrial fibrillation presented to the emergency department with a complaint of palpitation of onset this morning. Symptoms associated with diaphoresis and shortness of breath. Patient denies any chest pain. His heart rate noted to be in the 170s to 180s on arrival to the ED. He was given a dose of IV digoxin, oral metoprolol followed by IV metoprolol before his heart rate improved to the 110s. Chest x- ray reported possible vascular congestion. EKG demonstrated rapid atrial fibrillation. Patient is currently asymptomatic. He denied any fever or cough or diarrhea or vomiting or any reason for dehydration. He stated that he has been drinking a lot of coffee lately. He reports compliance with his medications including metoprolol. Patient is hospitalized for further management. - Past Medical/Surgical History -: Hypertension -: DM type II -: Atrial fibrillation -: Arthritis - Family History Father -: Stroke Brother -: Stroke - Social History Smoking Status: Never smoker Alcohol use: Yes Caffeine use: Yes Place of Residence: Home Review of Systems Other: Except as documented, all other systems reviewed and negative. Physical Examination - Physical Exam General: Alert, In no apparent distress, Oriented x3, Obese HEENT: PERRLA, Mucous membr. moist/pink, EOMI, Sclerae nonicteric Neck: Supple, JVD not distended Respiratory: Clear to auscultation bilaterally, Diminished Cardiovascular: No edema, Normal S1 S2, No murmurs, Irregular heart rate/rhythm Capillary refill: <2 Seconds Gastrointestinal: Normal bowel sounds, Soft and benign, Non-distended, No tenderness Musculoskeletal: No swelling, No tenderness Integumentary: No rashes, No erythema, No cyanosis Neurological: Normal speech, Normal strength at 5/5 x4 extr, Cranial nerves 3-12 intact Lymphatics: No axilla or inguinal lymphadenopathy - Studies Laboratory Data (last 24 hrs) 08/17/21 12:01: PT 12.2, INR 1.11 08/17/21 12:01: WBC 9.3, Hgb 13.8, Hct 42.1, Plt Count 313 08/17/21 12:01: Sodium 137, Potassium 4.2, BUN 18, Creatinine 1.06, Glucose 160 H, Magnesium 1.8, Total Bilirubin 0.3, AST 21, ALT 45, Alkaline Phosphatase 63 Assessment and Plan - Problems (Diagnosis) (1) Rapid atrial fibrillation Current Visit: Yes Status: Acute (2) Hypertension Current Visit: Yes Status: Acute (3) DM type 2 (diabetes mellitus, type 2) Current Visit: Yes Status: Acute (4) Morbid obesity Current Visit: Yes Status: Acute - Plan Place patient under observation. Trend troponin. Start metoprolol 50 mg twice daily. Oral Cardizem as needed. Obtain echocardiogram. Cardiology consult. Patient has been told to avoid caffeine. Obtain TSH and free T4 We will anticoagulate with oral Eliquis. Insulin sliding scale for glucose management. Lasix IV as needed Monitor renal function and optimize electrolytes. - Advance Directives Does patient have a Living Will: No Does patient have a Durable POA for Healthcare: No
[2021-08-17] MEDS ORDERED: dexAMETHasone 10 MG/ML VIAL ONE (16:08)
[2021-08-17] MEDS ORDERED: METOCLOPRAMIDE 10 MG/2mL INJ ONE (16:08)
[2021-08-17] MEDS: INSULIN -REGULAR HUMAN 50 UNIT/0.5 ML ML SQ SCH ×2 (16:39→21:58)
[2021-08-17] MEDS ORDERED: ACETAMINOPHEN 500 MG TAB PO PRN (16:39)
[2021-08-17] MEDS ORDERED: ONDANSETRON 4 MG/2 ML VIAL IV PRN (16:39)
[2021-08-17 17:09] VITALS: BMI 53.5
[2021-08-17] MEDS ORDERED: HEPARIN 5000 UNIT/ML 1 ML VIAL IV SCH (19:00)
[2021-08-17] MEDS: METOPROLOL TAR 50 MG TAB PO SCH (20:51)
[2021-08-17] MEDS ORDERED: APIXABAN 5 MG TABLET PO SCH (21:00)
[2021-08-17] MEDS ORDERED: HEPARIN/D5W 25,000 UNIT/500 ML BAG IV SCH (22:00)
[2021-08-18] MEDS ORDERED: HEPARIN 5000 UNIT/ML 1 ML VIAL ONE (04:32)
[2021-08-18 04:42] VITALS: O2SAT 100
[2021-08-18 06:06] LABS: Hematocrit 43.5 % (39.6-49.0); Lymphocytes % 17.6 % (15.3-44.8); MPV 8.3 fL (7.6-11.3); RBC Red Blood Cell Count 4.81 M/uL (4.33-5.43)
[2021-08-18 06:20] LABS: Phosphorus 3.7 mg/dL (2.5-4.9); Thyroid Stimulating Hormone 1.18 uIU/mL (0.360-3.740)
[2021-08-18 06:22] LABS: Magnesium 2.2 mg/dL (1.8-2.4); Potassium 5.3 mmol/L (3.5-5.1)
[2021-08-18] MEDS: INSULIN -REGULAR HUMAN 50 UNIT/0.5 ML ML SQ SCH (07:30)
[2021-08-18 07:41] LABS: White Blood Cell Scan OK (OK)
[2021-08-18 07:59] LABS: Platelet Estimate ADEQ
[2021-08-18 08:01] LABS: Blood Morphology Comment NOT SEEN (NOT SEEN)
[2021-08-18 08:16] VITALS: BP 144/64; TEMP 97.6
[2021-08-18] MEDS ORDERED: SOD POLYSTYREN SUL 15 GM/60 ML UCUP PO ONE (08:46)
--- NOTE | 2021-08-18 08:50 | P.DS ---
Admission Date: 08/17/21 Discharge Date: 08/18/21 Disposition: ROUTINE DISCHARGE Discharge Condition: FAIR Reason for Admission: Palpitation - Problems (1) Rapid atrial fibrillation Current Visit: Yes Status: Acute (2) Hypertension Current Visit: Yes Status: Acute (3) DM type 2 (diabetes mellitus, type 2) Current Visit: Yes Status: Acute (4) Morbid obesity Current Visit: Yes Status: Acute Brief History of Present Illness: 65-year-old morbidly obese gentleman with remote history of atrial fibrillation presented to the emergency department with a complaint of palpitation of onset this morning. Symptoms associated with diaphoresis and shortness of breath. Patient denies any chest pain. His heart rate noted to be in the 170s to 180s on arrival to the ED. He was given a dose of IV digoxin, oral metoprolol followed by IV metoprolol before his heart rate improved to the 110s. Chest x- ray reported possible vascular congestion. EKG demonstrated rapid atrial fibrillation. Patient is currently asymptomatic. He denied any fever or cough or diarrhea or vomiting or any reason for dehydration. He stated that he has been drinking a lot of coffee lately. He reports compliance with his medications including metoprolol. Patient is hospitalized for further management. Hospital Course: Patient placed under observation on the medical floor. Troponin trended slightly up and then plateaued. Patient was placed on his home dose metoprolol. He was treated briefly with heparin drip due to rising troponin but troponin plateaued and trended down. Echocardiogram done and the result is pending. Patient seen by cardiology-Dr. Couch, telemetry reviewed and patient noted to be in sinus rhythm. Patient deemed stable for discharge. He is prescribed Eliquis for atrial fibrillation anticoagulation. Patient informed to follow-up with his print color matcher. Vital Signs/Physical Exam: Temp Pulse Resp BP Pulse Ox 97.6 F 67 16 144/64 H 95 08/18/21 08:00 08/18/21 08:00 08/18/21 08:00 08/18/21 08:00 08/18/21 08:00 General: Alert, In no apparent distress, Oriented x3, Obese HEENT: PERRLA Neck: JVD not distended Respiratory: Clear to auscultation bilaterally Cardiovascular: Regular rate/rhythm, Normal S1 S2 Gastrointestinal: Soft and benign, Non-distended Musculoskeletal: No swelling Neurological: Normal strength at 5/5 x4 extr Laboratory Data at Discharge: WBC 11.1 K/uL (4.3-10.9) H D 08/18/21 05:35 Hgb 14.2 g/dL (13.6-17.9) 08/18/21 05:35 Hct 43.5 % (39.6-49.0) 08/18/21 05:35 Plt Count 297 K/uL (152-406) 08/18/21 05:35 PT 12.2 SECONDS (9.5-12.5) 08/17/21 12:01 INR 1.11 08/17/21 12:01 APTT 29.7 SECONDS (24.3-36.9) 08/18/21 03:11 Sodium 136 mmol/L (136-145) 08/18/21 05:35 Potassium 5.3 mmol/L (3.5-5.1) H 08/18/21 05:35 BUN 18 mg/dL (7-18) 08/18/21 05:35 Creatinine 1.04 mg/dL (0.55-1.3) 08/18/21 05:35 Glucose 126 mg/dL (74-106) H 08/18/21 05:35 Phosphorus 3.7 mg/dL (2.5-4.9) 08/18/21 05:35 Magnesium 2.2 mg/dL (1.8-2.4) 08/18/21 05:35 Total Bilirubin 0.3 mg/dL (0.2-1.0) 08/17/21 12:01 AST 21 U/L (15-37) 08/17/21 12:01 ALT 45 U/L (12-78) 08/17/21 12:01 Alkaline Phosphatase 63 U/L (45-117) 08/17/21 12:01 Triglycerides 99 mg/dL (<150) 08/18/21 05:35 Cholesterol 127 mg/dL (<200) 08/18/21 05:35 HDL Cholesterol 39 mg/dL (40-60) L 08/18/21 05:35 Cholesterol/HDL Ratio 3.26 08/18/21 05:35 Home Medications: Amlodipine Besylate [Norvasc] 2.5 mg PO DAILY 08/17/21 Aspirin [Aspirin EC 81 MG] 81 mg PO DAILY 08/17/21 Bupropion *Xl* [Wellbutrin XL*] 75 mg PO DAILY 08/17/21 Dextroamphetamine/Amphetamine [Adderall 30 mg Tablet] 30 mg PO DAILY 08/17/21 Duloxetine [Cymbalta *] 60 mg PO DAILY 08/17/21 Metformin HCl [Glucophage*] 1,000 mg PO DAILY WITH BREAKFAST 08/17/21 Metoprolol Tartrate [Lopressor*] 50 mg PO BID 08/17/21 Tamsulosin [Flomax*] 0.4 mg PO DAILY 08/17/21 Apixaban [Eliquis] 5 mg PO BID #60 tablet 08/18/21 New Medications: Apixaban [Eliquis] 5 mg PO BID #60 tablet Physician Discharge Instructions: PROBLEM: Atrial Fibrillation GOAL: Clear understanding of disease process INSTRUCTIONS: Follow up with print color matcher jn 1-2 weeks Return to ER if any chest pain, shortness of breath, chest palpitations Diet: ADA Activity: Ad kateryna DME DME: Date Ordered: Name of Company: [employer] Services Needed: Name of Company: Date or Referral: IMMUNIZATION Influenza Vaccine Indicated: Influenza Vaccine Given: Date Given: Pneumonia Vaccine Indicated: No Pneumonia Vaccine Given: Date Given: Diet: ADA Activity: Ad kateryna Followup: OOTMollyOT [Primary Care Provider] - 1-2 Weeks
[2021-08-18] MEDS: METOPROLOL TAR 50 MG TAB PO SCH (08:54)
--- NOTE | 2021-08-19 14:30 | EKG ---
Test Date: 2021-08-17 Test Time: 22:08:29 Technical Aide: RT-O MEASUREMENT RESULTS: Intervals: Rate: 67 TN: 166 QRSD: 98 QT: 386 QTc: 407 [place]: P: 27 TN: 166 QRS: 21 T: 22 INTERPRETIVE STATEMENTS: Normal sinus rhythm Nonspecific T wave abnormality Abnormal ECG Compared to ECG 08/17/2021 11:46:42 T-wave abnormality now present Atrial fibrillation no longer present ST (T wave) deviation no longer present Electronically Signed On 08-19-21 14:29:50 CDT by Luciano Couch
--- NOTE | 2021-08-19 14:34 | EKG ---
Test Date: 2021-08-17 Test Time: 11:46:42 Supervisor Public [facility] Nursing: CIERA MEASUREMENT RESULTS: Intervals: Rate: 151 [place]: QRSD: 96 QT: 296 QTc: 469 [place]: P: NV: QRS: 48 T: 15 INTERPRETIVE STATEMENTS: Atrial fibrillation with rapid ventricular response Nonspecific ST abnormality Abnormal ECG Compared to ECG 07/30/2006 06:01:50 ST (T wave) deviation now present Sinus rhythm no longer present Electronically Signed On 08-19-21 14:32:30 CDT by Luciano Couch
--- NOTE | 2021-08-21 07:03 | ECHO ---
HEIGHT: 6 ft 0 in WEIGHT: 395 lb 0 oz DATE OF STUDY: 08/18/[address]: Ricardo Tarango MD 2-DIMENSIONAL: YES M.MODE: YES DOPPLER: YES COLOR FLOW: YES TDS: PORTABLE: YES DEFINITY: BUBBLE STUDY: DIAGNOSIS: ATRIAL FIBRILLATION CARDIAC HISTORY: CATHERIZATION: SURGERY: PROSTHETIC VALVE: PACEMAKER: MEASUREMENTS (cm) DIASTOLIC (NORMALS) SYSTOLIC (NORMALS) IVSd 1.4 (0.6-1.2) LA Diam 4.1 (1.9-4.0) LVEF 60-65% LVIDd 3.5 (3.5-5.7) LVIDs 2.1 (2.0-3.5) %FS 40% LVPWd 1.4 (0.6-1.2) Ao Diam (2.0-3.7) 2 DIMENSIONAL ASSESSMENT: RIGHT ATRIUM: NORMAL LEFT ATRIUM: NORMAL RIGHT VENTRICLE: NORMAL LEFT VENTRICLE: NORMAL TRICUSPID VALVE: NORMAL MITRAL VALVE: NORMAL PULMONIC VALVE: NORMAL AORTIC VALVE: NORMAL PERICARDIAL EFFUSION: NONE AORTIC ROOT: NORMAL LEFT VENTRICULAR WALL MOTION: NORMAL DOPPLER/COLOR FLOW: MILD MITRAL REGURGITATION COMMENTS: NORMAL LEFT VENTRICULAR EJECTION FRACTION 60-65%. NORMAL WALL MOTION. MILD MITRAL REGURGITATION. WINDOWS ARE LIMITED. TECHNOLOGIST: FLORIAN SHEA
== END 2021-08-18 10:25 | disposition home or self-care (01) ==
LOC: ER 11:38 → ERHOLD 14:29 → 4TH 16:23
PROVIDERS: ADMIT Internal Medicine; ATTEND Internal Medicine
DX: I48.91 Unspecified atrial fibrillation (principal); I10 Essential (primary) hypertension; E11.9 Type 2 diabetes mellitus without complications; M19.90 Unspecified osteoarthritis, unspecified site; F32.A Depression, unspecified; N28.1 Cyst of kidney, acquired; E66.01 Morbid (severe) obesity due to excess calories; Z68.43 Body mass index [BMI] 50.0-59.9, adult; Z79.84 Long term (current) use of oral hypoglycemic drugs; Z79.82 Long term (current) use of aspirin; Z79.899 Other long term (current) drug therapy; Z20.822 Contact with and (suspected) exposure to COVID-19; Z82.3 Family history of stroke
CPT/HCPCS: 96365; 96361; 93005 ×2; 93306; 85025 ×2; 80048 ×2; 36415; 83735 ×2; 84100; 85610; 80061; 82947 ×3; 80076; 85730 ×2; 84443 ×2; 84484 ×3; 84439; 83880; 71045; 94760 ×2; 94660 ×2; 96375; 96372; 99285; 96366; U0003; J1160; J1815; J1644 ×3; J1650; J3475; J7040; J7030; G0378 ×3; J1100; J2765

== ENCOUNTER 2023-07-04 21:20 | Emergency (ER) | payer MEDICARE, OTHER ==
[2023-07-04] MEDS ORDERED: dilTIAZem HCL 25 MG/5 ML VIAL IV ONE ×2 (21:40→22:42)
[2023-07-04 21:59] LABS: Absolute Basophils 0.1 K/uL (0-0.5); Absolute Eosinophils 0.3 K/uL (0-0.5); Absolute Lymphocytes (CBC) 2.7 K/uL (0.7-4.9); Absolute Monocytes 1.2 K/uL (0.1-1.3); Absolute Neutrophil 7.4 K/uL (1.8-8.0); Basophils % 1.2 % (0-1.3); Hematocrit 40.8 % (39.6-49.0); Hemoglobin 13.6 g/dL (13.6-17.9); MCH 30.4 pg (27.0-35.0); MCHC 33.4 g/dL (32.0-36.0); MPV 7.8 fL (7.6-11.3); Neutrophils % 62.8 % (41.7-73.7); Nucleated Red Blood Cells % 0.1 % (0-0); Platelets 369 thou/uL (152-406); RBC Red Blood Cell Count 4.49 M/uL (4.33-5.43); Red Cell Distribution Width 14.6 % (12.1-15.2)
[2023-07-04 22:11] LABS: Anion Gap 10.1 mEq/L (5.0-15.0); Potassium 4.1 mEq/L (3.5-5.1); Troponin High Sensitivity 7.4 pg/mL (<58.9)
--- NOTE | 2023-07-04 22:22 | RAD REPORT ---
EXAM DESCRIPTION: [place] Single View07/04/2023 10:03 pm CLINICAL HISTORY: Shortness breath COMPARISON: 2021 FINDINGS: The lungs appear clear of acute infiltrate. The heart is borderline enlarged IMPRESSION: No acute abnormalities displayed
--- NOTE | 2023-07-04 23:44 | EDPHYS ---
Physician Documentation [facility] Name: William Romero Age: 67 yrs Sex: Male : 1955 Arrival Date: 07/04/2023 Time: 21:20 Bed 2 Private MD: ED Physician Aniket Vasquez HPI: 07/03 21:42 This 67 yrs old Male presents to ER via Ambulatory with complaints of Heart ec2 Palpitations, shakiness, Shortness Of Breath. 21:42 Patient arrives today due to concern for palpitations. Patient with history of atrial ec2 fibrillation, states he takes atenolol. Patient reports he is having some palpitations. Denies any chest pain or difficulty breathing. Patient reports no vomiting diarrhea, no issues with cough and cold symptoms. Patient reports some baseline edema. Does report that he is on Eliquis as well.. Historical: - Allergies: 21:41 No Known Allergies; ha1 - Home Meds: 21:39 Aspirin Oral [Active]; tamsulosin Oral [Active]; ha1 - PMHx: 21:39 Depression; Hypertension; Kidney Cyst; ha1 - Immunization history:: Adult Immunizations up to date. - Infectious Disease History:: Denies. - Social history:: Smoking status: unknown. ROS: 21:42 Constitutional: as per hpi ec2 Exam: 21:42 Constitutional: GEN: NAD Head: atraumatic Eyes: EOMI Ears: External ears are ec2 normal. CV: Tachycardia, regular rhythm LUNGS: no respiratory distress ABD: non-distended, obese SKIN: no evidence of rashes MSK: no evidence of trauma NEURO: moves all extremities equally Vital Signs: 21:36 BP 158 / 126; Pulse 135; Resp 14; Temp 98.2; Pulse Ox 97% ; Pain 3/10; bm8 21:56 BP 147 / 77; Pulse 87; Resp 14; Temp 98.5; Pulse Ox 97% ; Pain 0/10; bm8 22:48 BP 130 / 65; Pulse 70; Resp 14; Pulse Ox 97% ; ha1 07/04 00:22 BP 110 / 70; Pulse 82; Resp 17; Temp 98.5; Pulse Ox 99% ; Pain 0/10; bm8 07/03 21:36 Pain Scale: Adult bm8 21:56 Pain Scale: Adult bm8 07/04 00:22 Pain Scale: Adult bm8 [place] Coma Score: 07/03 21:45 Eye Response: spontaneous(4). Motor Response: obeys commands(6). Verbal Response: bm8 oriented(5). Total: 15. 07/04 00:22 Eye Response: spontaneous(4). Motor Response: obeys commands(6). Verbal Response: bm8 oriented(5). Total: 15. MDM: 07/03 21:37 Patient medically screened. ec2 21:42 Data reviewed: vital signs. ED course: Patient arrives today for evaluation of ec2 palpitations. Examination remarkable for tachycardic individual who has an irregular rhythm, EKG obtained, independently reviewed and interpreted by me, shows atrial fibrillation, rate of 113, no acute ST segment elevations, intervals are nonconcerning. Will obtain lab work, EKG, chest x-ray. Evaluate for electrolyte disturbances. Will treat the patient's arrhythmia with 10 mg of diltiazem. 22:03 ED course: On reassessment patient with improvement in tachycardia, repeat rates 80s to ec2 100s.. 22:14 ED course: Metabolic profile is reassuring. Does have renal dysfunction with creatinine ec2 1.72 and a GFR 43. CBC reassuring, troponin within normal ranges. Heart rate remains in the 90s to 100s. . 22:35 ED course: Patient remains in A-fib with RVR, rates and 1 10-1 20. Will give additional ec2 bolus of 25 mg of diltiazem. Will admit for repeated doses of diltiazem. Initially ordered continuous diltiazem drip however will rebolus and reassess and reconsider.. 22:58 ED course: Recommended inpatient hospitalization, patient seemed hesitant, he was ec2 agreeable that we can watch him for a bit of time to see how second dose of diltiazem response and if need to give additional medications we would hospitalize him.. 23:44 ED course: On reassessment patient with rates in the 70s 80s. Offered patient ec2 hospitalization however patient declined, feel would be reasonable for patient to return home, instructed to follow-up cardiology. Return precautions given.. 07/03 21:38 Order name: Basic Metabolic Panel; Complete Time: 22:13 ec2 07/03 21:38 Order name: CBC with Diff; Complete Time: 22:13 ec2 07/03 21:38 Order name: Troponin HS; Complete Time: 22:13 ec2 07/03 21:38 Order name: XRAY Chest (1 view); Complete Time: 22:33 ec2 07/03 21:38 Order name: Cardiac monitoring; Complete Time: 21:38 ec2 07/03 21:38 Order name: EKG - Nurse/Tech; Complete Time: 21:38 ec2 07/03 21:38 Order name: IV Saline Lock; Complete Time: 21:38 ec2 07/03 21:38 Order name: Labs collected and sent; Complete Time: 21:38 ec2 07/03 21:38 Order name: O2 Per Protocol; Complete Time: 21:38 ec2 07/03 21:38 Order name: O2 Sat Monitoring; Complete Time: 21:38 ec2 Administered Medications: 21:43 Drug: Diltiazem IVP 10 mg IVP once; Over 2 minutes Route: IVP; Site: left antecubital; 8 07/04 00:24 Follow up: Response: No adverse reaction [facility] 07/03 22:35 CANCELLED (Physician Discretion): diltiazem 5 mg/hr IV at calculated rate See ec2 Administration Instructions; (standard dilution 125 mg diltiazem mixed in 125 mL NS; final concentration 1mg/mL). Recommended max rate 15 mg/hr; Titrate 5 mg/hr as often as every 15 minutes to achieve goal (see titration policy); Goal parameter HR less than 100 bpm 22:47 Drug: Diltiazem IVP 25 mg IVP once; Over 2 Minutes Route: IVP; Site: left antecubital; [facility] 07/04 00:24 Follow up: Response: No adverse reaction bm8 Disposition: 07/03 23:15 Critical Care:. ec2 Disposition Summary: 07/04/23 23:44 Discharge Ordered Notes: Location: Home ec2 Condition: Stable ec2 Diagnosis - Paroxysmal atrial fibrillation ec2 Followup: ec2 - With: Private Physician - When: - Reason: Re-evaluation by your physician Discharge Instructions: - Discharge Summary Sheet ec2 - Atrial Fibrillation ec2 Forms: - Medication Reconciliation Form ec2 - Thank You Letter ec2 - Antibiotic Education ec2 - Prescription Opioid Use ec2 - Patient Portal Instructions ec2 - Leadership Thank You Letter ec2 Critical care time excluding procedures: 23:15 Critical care time: Bedside Care: 30 minutes. Total time: 30 minutes ec2 Signatures: Dispatcher [employer] Camille Neil, RN RN ha1 Aniket Vasquez MD MD ec2 Carlos Cooney RN RN bm8 Corrections: (The following items were deleted from the chart) 22:35 22:34 Diltiazem IV 5 mg/hr IV at calculated rate See Administration Instructions; ec2 (standard dilution 125 mg diltiazem mixed in 125 mL NS; final concentration 1mg/mL). Recommended max rate 15 mg/hr; Titrate 5 mg/hr as often as every 15 minutes to achieve goal (see titration policy); Goal parameter HR less than 100 bpm ordered. ec2
--- NOTE | 2023-07-04 23:44 | ER ---
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 Coronavirus screen: At this time, the client does not indicate any symptoms associated with coronavirus-19. Ebola Screen: Patient negative for fever greater than or equal to 101.5 degrees Fahrenheit, and additional compatible Ebola Virus Disease symptoms Patient denies exposure to infectious person. Patient denies travel to an Ebola-affected area in the 21 days before illness onset. No symptoms or risks identified at this time. Initial Sepsis Screen: Does the patient meet any 2 criteria? No. Patient's initial sepsis screen is negative. Does the patient have a suspected source of infection? No. Patient's initial sepsis screen is negative. Risk Assessment: Do you want to hurt yourself or someone else? Patient reports no desire to harm self or others. Onset of symptoms was July 04, 2023 at 20:00. 21:36 Method Of Arrival: Ambulatory bm8 21:36 Acuity: KUSH 2 bm8 Triage Assessment: 21:43 General: Appears in no apparent distress. uncomfortable, Behavior is calm, cooperative, bm8 appropriate for age. Pain: Complains of pain in chest Pain does not radiate. Pain currently is 5 out of 10 on a pain scale. EENT: No deficits noted. No signs and/or symptoms were reported regarding the EENT system. Neuro: No deficits noted. Level of Consciousness is awake, alert, obeys commands, Oriented to person, place, time, situation, Appropriate for age Route Aide are equal bilaterally. Cardiovascular: Reports chest pain, palpitations, shortness of breath, Heart tones S1 present Capillary refill < 3 seconds sweaty and cool. Respiratory: Reports shortness of breath at rest Airway is patent Respiratory effort is even, unlabored, Respiratory pattern is regular, symmetrical, Breath sounds are clear bilaterally. Onset: The symptoms/episode began/occurred suddenly, the patient has moderate shortness of breath. GI: No deficits noted. No signs and/or symptoms were reported involving the gastrointestinal system. : No deficits noted. No signs and/or symptoms were reported regarding the genitourinary system. Derm: No deficits noted. No signs and/or symptoms reported regarding the dermatologic system. Historical: - Allergies: 21:41 No Known Allergies; ha1 - Home Meds: 21:39 Aspirin Oral [Active]; tamsulosin Oral [Active]; ha1 - PMHx: 21:39 Depression; Hypertension; Kidney Cyst; ha1 - Immunization history:: Adult Immunizations up to date. - Infectious Disease History:: Denies. - Social history:: Smoking status: unknown. Screenin:45 [facility] ED Fall Risk Assessment (Adult) History of falling in the last 3 months, bm8 including since admission No falls in past 3 months (0 pts) Confusion or Disorientation No (0 pts) Intoxicated or Sedated No (0 pts) Impaired Gait No (0 pts) Mobility Assist Device Used No (0 pt) Altered Elimination No (0 pt) Score/Fall Risk Level 0 - 2 = Low Risk Oriented to surroundings, Maintained a safe environment, Educated pt \T\ family on fall prevention, incl call for assistance when getting out of bed. Abuse screen: Denies threats or abuse. Nutritional screening: No deficits noted. Tuberculosis screening: No symptoms or risk factors identified. Assessment: 21:45 Reassessment: see triage note. bm8 21:56 Reassessment: Patient appears in no apparent distress at this time. Patient and/or bm8 family updated on plan of care and expected duration. Pain level reassessed. Patient is alert, oriented x 3, equal unlabored respirations, skin warm/dry/pink. Patient denies pain at this time. Patient states feeling better. Patient states symptoms have improved. General: Appears in no apparent distress. comfortable, Behavior is calm, cooperative, appropriate for age. Pain: Denies pain. Neuro: No deficits noted. Level of Consciousness is awake, alert, obeys commands. Cardiovascular: Denies chest pain, shortness of breath, Capillary refill < 3 seconds Patient's skin is warm and dry. Rhythm is atrial fibrillation. Respiratory: Airway is patent Respiratory effort is even, unlabored, Respiratory pattern is regular, symmetrical, Breath sounds are clear bilaterally. 22:47 Reassessment: Patient and/or family updated on plan of care and expected duration. Pain ha1 level reassessed. Patient is alert, oriented x 3, equal unlabored respirations, skin warm/dry/pink. Patient states feeling better. Patient states symptoms have improved. 07/04 00:22 Reassessment: Patient appears in no apparent distress at this time. Patient and/or bm8 family updated on plan of care and expected duration. Pain level reassessed. Patient is alert, oriented x 3, equal unlabored respirations, skin warm/dry/pink. Patient denies pain at this time. Patient states feeling better. Patient states symptoms have improved. Cardiovascular: Denies chest pain, shortness of breath, Heart tones S1 S2 present Capillary refill < 3 seconds Patient's skin is warm and dry. Rhythm is atrial fibrillation. Respiratory: Airway is patent Respiratory effort is even, unlabored, Respiratory pattern is regular, symmetrical, Sputum is. Vital Signs: 07/03 21:36 BP 158 / 126; Pulse 135; Resp 14; Temp 98.2; Pulse Ox 97% ; Pain 3/10; bm8 21:56 BP 147 / 77; Pulse 87; Resp 14; Temp 98.5; Pulse Ox 97% ; Pain 0/10; bm8 22:48 BP 130 / 65; Pulse 70; Resp 14; Pulse Ox 97% ; ha1 07/04 00:22 BP 110 / 70; Pulse 82; Resp 17; Temp 98.5; Pulse Ox 99% ; Pain 0/10; bm8 18 21:36 Pain Scale: Adult bm8 21:56 Pain Scale: Adult bm8 07/04 00:22 Pain Scale: Adult bm8 [place] Coma Score: 07/03 21:45 Eye Response: spontaneous(4). Motor Response: obeys commands(6). Verbal Response: bm8 oriented(5). Total: 15. 07/04 00:22 Eye Response: spontaneous(4). Motor Response: obeys commands(6). Verbal Response: bm8 oriented(5). Total: 15. ED Course: 07/03 21:22 Patient arrived in ED. ra3 21:23 Aniket Vasquez MD is Attending Physician. ec2 21:41 Triage completed. bm8 21:43 Arm band placed on right wrist. EKG completed in triage. Results shown to MD. EKG done bm8 per protocol. Performed by ED Staff. Shown to ED physician. Labs ordered per protocol. Drawn by ED staff. 21:45 Patient has correct armband on for positive identification. Placed in gown. Bed in low bm8 position. Call light in reach. Side rails up X 1. Adult w/ patient. Client placed on continuous cardiac and pulse oximetry monitoring. NIBP monitoring applied. monitoring and evaluation advisor on. Pulse ox on. NIBP on. Door closed. Noise minimized. Warm blanket given. Verbal reassurance given. Head of bed elevated. 21:45 No provider procedures requiring assistance completed. Inserted saline lock: 20 gauge bm8 in left antecubital area, using aseptic technique. Blood collected. 21:56 Carlos Cooney, RN is Primary Nurse. bm8 22:05 XRAY Chest (1 view) In Process Unspecified. EDMS 07/04 00:22 Provided Education on: post ER care. bm8 00:22 IV discontinued, intact, bleeding controlled, No redness/swelling at site. Pressure bm8 dressing applied. Administered Medications: 07/03 21:43 Drug: Diltiazem IVP 10 mg IVP once; Over 2 minutes Route: IVP; Site: left antecubital; bm8 07/04 00:24 Follow up: Response: No adverse reaction bm8 07/03 22:35 CANCELLED (Physician Discretion): diltiazem 5 mg/hr IV at calculated rate See ec2 Administration Instructions; (standard dilution 125 mg diltiazem mixed in 125 mL NS; final concentration 1mg/mL). Recommended max rate 15 mg/hr; Titrate 5 mg/hr as often as every 15 minutes to achieve goal (see titration policy); Goal parameter HR less than 100 bpm 22:47 Drug: Diltiazem IVP 25 mg IVP once; Over 2 Minutes Route: IVP; Site: left antecubital; ha1 07/04 00:24 Follow up: Response: No adverse reaction bm8 Medication: 07/03 21:45 VIS not applicable for this client. bm8 Outcome: 23:44 Discharge ordered by . ec2 07/04 00:22 Discharged to home ambulatory, bm8 Condition: stable Discharge instructions given to patient, family, Instructed on discharge instructions, follow up and referral plans. medication usage, safety practices, Demonstrated understanding of instructions, follow-up care, medications, 00:25 Patient left the ED. bm8 Signatures: Dispatcher [employer] Camille Neil, RN RN ha1 Aniket Vasquez MD MD ec2 Maddie Paul ra3 Carlos Cooney RN RN bm8
[2023-07-05 09:58] VITALS: BP 110/70; TEMP 98.5
[2023-07-05 09:59] VITALS: O2SAT 99
== END 2023-07-05 00:25 | disposition home or self-care (01) ==
LOC: ER 21:20
DX: I48.0 Paroxysmal atrial fibrillation (principal); I10 Essential (primary) hypertension; Z79.01 Long term (current) use of anticoagulants; Z79.82 Long term (current) use of aspirin
CPT/HCPCS: 36415; 71045; 80048; 84484; 85025; 93005; 96374; 99285

== ENCOUNTER 2023-07-05 18:12 | Inpatient (IN) | payer OTHER ==
[2023-07-05] MEDS ORDERED: METOPROLOL TARTRATE 5 MG/5 ML INJ IV ONE (18:38)
[2023-07-05] MEDS ORDERED: NA CHLORIDE 0.9% 500 ML ONE (18:38)
[2023-07-05 18:43] LABS: Absolute Basophils 0.1 K/uL (0-0.5); Absolute Eosinophils 0.3 K/uL (0-0.5); Absolute Lymphocytes (CBC) 2.2 K/uL (0.7-4.9); Absolute Monocytes 1.1 K/uL (0.1-1.3); Absolute Neutrophil 9.2 K/uL (1.8-8.0); Basophils % 0.6 % (0-1.3); Eosinophils % 2.1 % (0-4.4); Hematocrit 41.1 % (39.6-49.0); Hemoglobin 13.9 g/dL (13.6-17.9); Lymphocytes % 17.2 % (15.3-44.8); MCH 30.7 pg (27.0-35.0); MCHC 33.7 g/dL (32.0-36.0); MCV 90.9 fL (80-100); MPV 7.8 fL (7.6-11.3); Monocytes % 8.3 % (3.3-12.3); Neutrophils % 71.8 % (41.7-73.7); Platelets 363 thou/uL (152-406); RBC Red Blood Cell Count 4.52 M/uL (4.33-5.43); Red Cell Distribution Width 14.8 % (12.1-15.2)
[2023-07-05 19:09] LABS: ALT/SGPT 37 U/L (16-61); Albumin 3.4 g/dL (3.4-5.0); Albumin/Globulin Ratio 0.9 (1.1-1.8); Alkaline Phosphatase 63 U/L (45-117); Anion Gap 8.5 mEq/L (5.0-15.0); BUN Blood Urea Nitrogen 31 mg/dL (7-18); Bicarbonate 26 mEq/L (21-32); Bilirubin Total 0.2 mg/dL (0.2-1.0); Globulin 3.9 g/dL (2.3-3.5); Glomerular Filtration Rate 40 ml/min (=/>90); Glucose Level 137 mg/dL (74-106); NT PRO-BNP 2882 pg/mL (<125); Protein, Total 7.3 g/dL (6.4-8.2); Sodium Level 138 mEq/L (136-145); Thyroid Stimulating Hormone 0.781 uIU/mL (0.358-3.740); Troponin High Sensitivity 14.2 pg/mL (<58.9)
[2023-07-05 19:27] LABS: AST/SGOT 23 U/L (15-37); Bilirubin Direct < 0.1 mg/dL (0-0.2); Bilirubin Indirect, Calculated ND mg/dL (0.2-0.8); Magnesium 2.2 mg/dL (1.6-2.4); Potassium 4.5 mEq/L (3.5-5.1)
--- NOTE | 2023-07-05 19:52 | EDPHYS ---
Physician Documentation [facility] Name: William Romero Age: 67 yrs Sex: Male : 1955 Arrival Date: 07/05/2023 Time: 18:12 Bed 13 Private MD: ED Physician Benedicto Sandhu HPI: 07/04 19:44 This 67 yrs old Male presents to ER via Ambulatory with complaints of Afib. rt 19:44 Patient presents to the ED with persistence of A-fib with fast rate. Patient was seen rt in the ED last night, heart was controlled after multiple medications, admission was recommended to him at that time, he declined. States that the A-fib came back. Reports of fatigue, dizziness, shortness of breath. Denies other acute complaints at this time, symptoms are moderate severity, no other aggravating or alleviating factors.. Historical: - Allergies: 18:20 No Known Allergies; bp - PMHx: 18:20 Depression; Hypertension; Kidney Cyst; bp - Immunization history:: Adult Immunizations up to date. - Infectious Disease History:: Denies. - Social history:: Smoking status: Patient denies any tobacco usage or history of. - Family history:: not pertinent. ROS: 19:44 Abdomen/GI: Negative for abdominal pain, nausea, vomiting, diarrhea, and constipation, rt MS/Extremity: Negative for injury and deformity, Skin: Negative for injury, rash, and discoloration, Neuro: Negative for headache, weakness, numbness, tingling, and seizure, 19:44 Constitutional: Positive for fatigue, Negative for fever, 19:44 Cardiovascular: Positive for palpitations, Negative for chest pain, 19:44 Respiratory: Positive for shortness of breath, Negative for cough, Exam: 19:44 Constitutional: This is a well developed, well nourished patient who is awake, alert, rt and in no acute distress. Head/Face: Normocephalic, atraumatic. Chest/axilla: Normal chest wall appearance and motion. Nontender with no deformity. No lesions are appreciated. Cardiovascular: Regular rate and rhythm with a normal S1 and S2. No gallops, murmurs, or rubs. Normal PMI, no JVD. No pulse deficits. Respiratory: Lungs have equal breath sounds bilaterally, clear to auscultation and percussion. No rales, rhonchi or wheezes noted. No increased work of breathing, no retractions or nasal flaring. Abdomen/GI: Soft, non-tender, with normal bowel sounds. No distension or tympany. No guarding or rebound. No evidence of tenderness throughout. Skin: Warm, dry with normal turgor. Normal color with no rashes, no lesions, and no evidence of cellulitis. MS/ Extremity: Pulses equal, no cyanosis. Neurovascular intact. Full, normal range of motion. Neuro: Awake and alert, GCS 15, oriented to person, place, time, and situation. Cranial nerves II-XII grossly intact. Motor strength 5/5 in all extremities. Sensory grossly intact. Cerebellar exam normal. Normal gait. 19:44 ECG was reviewed by the Attending Physician. Vital Signs: 18:19 BP 175 / 98; Pulse 140; Resp 20; Temp 97.7; Pulse Ox 96% on R/A; Weight 176.45 kg; bp Height 6 ft. 0 in. ; Pain 0/10; 19:31 BP 145 / 84; Pulse 93; Pulse Ox 99% on R/A; Pain 0/10; tm6 20:38 BP 154 / 76; Pulse 98; Resp 17 S; Pulse Ox 98% on R/A; ha1 20:56 BP 156 / 61; Pulse 105; Pulse Ox 99% on R/A; tm6 18:19 Body Mass Index 52.76 (176.45 kg, 182.88 cm) bp 18:19 Pain Scale: Adult bp 19:31 Pain Scale: Adult tm6 MDM: 18:18 Patient medically screened. rt 19:44 Differential Diagnosis A-fib, thyrotoxicosis, electrolyte disturbance. Data reviewed: rt vital signs, nurses notes, lab test result(s), EKG, radiologic studies. Consideration of Admission/Observation Patient was admitted/placed on observation. Management of patient was discussed with the following: Hospitalist: Agrees to admit. I considered the following discharge prescriptions or medication management in the emergency department Medications were administered in the Emergency Department. See MAR. Test considered but Not performed: X-ray: Patient with normal chest x-ray within the past 24 hours, do not believe that repeat x-ray is indicated.. Care significantly affected by the following chronic conditions: Atrial fibrillation. Counseling: I had a detailed discussion with the patient and/or guardian regarding the historical points, exam findings, and any diagnostic results supporting the discharge/admit diagnosis, lab results, the need for further work-up and treatment in the hospital. Response to treatment: the patient's symptoms have markedly improved after treatment. 07/04 18:28 Order name: Basic Metabolic Panel; Complete Time: 19:28 rt 07/04 18:28 Order name: CBC with Diff; Complete Time: 19:28 rt 07/04 18:28 Order name: LFT's; Complete Time: :28 rt 07/04 18:28 Order name: Magnesium; Complete Time: 19:28 rt 07/04 18:28 Order name: NT PRO-BNP; Complete Time: :28 rt 07/04 18:28 Order name: Troponin HS; Complete Time: :28 rt 07/04 18:28 Order name: TSH; Complete Time: :28 rt 07/04 22:27 Order name: Urinalysis w/ reflexes EDMS 07/04 22:29 Order name: Urinalysis w/ reflexes EDMS 07/04 22:29 Order name: CBC with Automated Diff EDMS 07/04 22:29 Order name: CBC with Automated Diff EDMS 07/04 22:29 Order name: Comprehensive Metabolic Panel EDMS 07/04 22:29 Order name: Comprehensive Metabolic Panel EDMS 07/04 22:29 Order name: Troponin High Sensitivity EDMS 07/04 22:29 Order name: Troponin High Sensitivity EDMS 07/04 22:29 Order name: Troponin High Sensitivity EDMS 07/04 22:29 Order name: Troponin High Sensitivity EDMS 07/05 05:46 Order name: Troponin High Sensitivity EDMS 07/04 22:29 Order name: CONS Physician Consult EDMS 07/04 18:28 Order name: Cardiac monitoring; Complete Time: 18:33 rt 07/04 18:28 Order name: EKG - Nurse/Tech; Complete Time: 18:33 rt 07/04 18:28 Order name: IV Saline Lock; Complete Time: 18:33 rt 07/04 18:28 Order name: Labs collected and sent; Complete Time: 18:33 rt 07/04 18:28 Order name: O2 Per Protocol; Complete Time: 18:33 rt 07/04 18:28 Order name: O2 Sat Monitoring; Complete Time: 18:33 rt EC:44 Rate is 122 beats/min. Rhythm is irregularly irregular, A fib with Rapid ventricular rt response, Rate related ST and T wave changes. QRS interval is normal. QT interval is normal. No Q waves. Administered Medications: 18:45 Drug: NS 0.9% IV 500 ml IV at bolus once Route: IV; Rate: bolus; Site: left forearm; bp 07/05 05:38 Follow up: IV Status: Completed infusion; IV Intake: 5000ml km8 07/04 18:45 Drug: Metoprolol IVP 5 mg IVP every 5 minutes; Hold for SBP < 100 or HR < 60. x3 Route: bp IVP; Site: left forearm; 18:50 Drug: Metoprolol IVP 5 mg IVP every 5 minutes; Hold for SBP < 100 or HR < 60. x3 Route: bp IVP; Site: left forearm; 20:55 Drug: Metoprolol IVP 5 mg IVP every 5 minutes; Hold for SBP < 100 or HR < 60. x3 Route: tm6 IVP; Site: right forearm; 07/05 05:38 Follow up: Response: No adverse reaction km8 Disposition Summary: 07/05/23 19:51 Hospitalization Ordered Notes: Hospitalization Status: Observation rt Provider: Ron Ford rt Condition: Stable rt Problem: an acute exacerbation rt Symptoms: have improved rt Bed/Room Type: Standard rt Location: Telemetry/MedSurg (observation)(07/06/23 07:57) [email or web address] Room Assignment: 409(07/06/23 07:57) [email or web address] Diagnosis - Atrial fibrillation with rapid ventricular rate rt Forms: - Medication Reconciliation Form rt - SBAR form rt - Leadership Thank You Letter rt Critical care time excluding procedures: 07/04 19:44 Critical care time: Bedside Care: 30 minutes, Consultation: 5 minutes. Total time: 35 rt minutes Signatures: Dispatcher [employer] EDJose Gutierrez RN RN [email or web address] Carlos Watts RN RN Elizabeth Anton Ryan, MD MD rt Willa Lawrence RN RN tm6 Mack Mcpherson jg11 Sis Perez RN km8 Corrections: (The following items were deleted from the chart) 18:29 18:29 BASIC METABOLIC PANEL+C.LAB.BRZ ordered. EDMS EDMS 18:29 18:29 CBC+H.LAB.BRZ ordered. EDMS EDMS 18:29 18:29 HEPATIC FUNCTION+C.LAB.BRZ ordered. EDMS EDMS 18: 18:29 MAGNESIUM+C.LAB.BRZ ordered. EDMS EDMS 18: 18:29 PROBNP+C.LAB.BRZ ordered. EDMS EDMS 18: 18:29 Troponin High Sensitivity+C.LAB.BRZ ordered. EDMS EDMS 18: 18:29 THYROID STIMULAT HORMONE+C.LAB.BRZ ordered. EDMS EDMS 07/05 01:23 07/04 19:51 Telemetry/MedSurg (observation) rt jb4 07/05 01:07/04 19:51 rt jb4 07/05 07:57 01:23 [facility] ER HOLD jb4 07:57 01:23 ERHOLD- jb4 eb 07:57 07:57 Telemetry/MedSurg (observation) jg11 07:57 07:57 409 jg11
--- NOTE | 2023-07-05 19:52 | ER ---
Nurse's Notes [facility] Name: William Romero Age: 67 yrs Sex: Male : 1955 Arrival Date: 07/05/2023 Time: 18:12 Bed 13 Private MD: Diagnosis: Atrial fibrillation with rapid ventricular rate Presentation: 07/04 18:19 Initial Sepsis Screen: Does the patient meet any 2 criteria? No. Patient's initial bp sepsis screen is negative. 18:19 Method Of Arrival: Ambulatory bp 18:20 Chief complaint: Patient states: a FIB SINCE LAST NIGHT. hr 140-160'S TODAY. No pain. bp Coronavirus screen: Client denies travel out of the [place] in the last 14 days. At this time, the client does not indicate any symptoms associated with coronavirus-19. Ebola Screen: Patient denies travel to an Ebola-affected area in the 21 days before illness onset. Initial Sepsis Screen: Does the patient have a suspected source of infection? No. Patient's initial sepsis screen is negative. Risk Assessment: Do you want to hurt yourself or someone else? Patient reports no desire to harm self or others. Onset of symptoms was July 04, 2023. 18:20 Acuity: KUSH 2 bp Triage Assessment: 18:21 General: Appears uncomfortable, Behavior is calm, cooperative, appropriate for age. bp Pain: Denies pain. Cardiovascular: Reports palpitations, fast HR. Historical: - Allergies: 18:20 No Known Allergies; bp - PMHx: 18:20 Depression; Hypertension; Kidney Cyst; bp - Immunization history:: Adult Immunizations up to date. - Infectious Disease History:: Denies. - Social history:: Smoking status: Patient denies any tobacco usage or history of. - Family history:: not pertinent. Screenin:32 [facility] ED Fall Risk Assessment (Adult) History of falling in the last 3 months, tm6 including since admission No falls in past 3 months (0 pts) Confusion or Disorientation No (0 pts) Intoxicated or Sedated No (0 pts) Impaired Gait No (0 pts) Mobility Assist Device Used No (0 pt) Altered Elimination No (0 pt) Score/Fall Risk Level 0 - 2 = Low Risk Oriented to surroundings, Maintained a safe environment. Abuse screen: Denies threats or abuse. Denies injuries from another. Nutritional screening: No deficits noted. Tuberculosis screening: No symptoms or risk factors identified. Assessment: 19:32 General: Appears in no apparent distress. Behavior is calm, cooperative. Pain: Denies tm6 pain. Neuro: Level of Consciousness is awake, alert, obeys commands, Oriented to person, place, time, situation. Cardiovascular: Denies chest pain, Patient's skin is warm and dry. Rhythm is atrial fibrillation. Respiratory: Airway is patent Respiratory effort is even, unlabored, Respiratory pattern is regular, symmetrical. GI: No signs and/or symptoms were reported involving the gastrointestinal system. Abdomen is round non-distended. : No signs and/or symptoms were reported regarding the genitourinary system. EENT: No signs and/or symptoms were reported regarding the EENT system. Derm: No signs and/or symptoms reported regarding the dermatologic system. Musculoskeletal: No signs and/or symptoms reported regarding the musculoskeletal system. 20:39 Reassessment: Patient and/or family updated on plan of care and expected duration. Pain ha1 level reassessed. Patient is alert, oriented x 3, equal unlabored respirations, skin warm/dry/pink. 22:33 Reassessment: Ayla Romero () [phone] Cell phone. jb4 Vital Signs: 18:19 BP 175 / 98; Pulse 140; Resp 20; Temp 97.7; Pulse Ox 96% on R/A; Weight 176.45 kg; bp Height 6 ft. 0 in. ; Pain 0/10; 19:31 BP 145 / 84; Pulse 93; Pulse Ox 99% on R/A; Pain 0/10; tm6 20:38 BP 154 / 76; Pulse 98; Resp 17 S; Pulse Ox 98% on R/A; ha1 20:56 BP 156 / 61; Pulse 105; Pulse Ox 99% on R/A; tm6 18:19 Body Mass Index 52.76 (176.45 kg, 182.88 cm) bp 18:19 Pain Scale: Adult bp 19:31 Pain Scale: Adult tm6 Vitals: 19:32 Cardiac Rhythm Assessment Atrial fibrillation. tm6 ED Course: 18:13 Patient arrived in ED. rg4 18:14 Benedicto Sandhu MD is Attending Physician. rt 18:14 Carlos Watts, AELX is Primary Nurse. bp 18:20 Arm band placed on Patient placed in an exam room, on a stretcher. bp 18:21 Triage completed. bp 18:23 EKG done, by ED staff, reviewed by Benedicto Sandhu MD. ap3 18:33 TSH Sent. bp 18:33 Troponin HS Sent. bp 18:33 NT PRO-BNP Sent. bp 18:33 Magnesium Sent. bp 18:33 LFT's Sent. bp 18:33 CBC with Diff Sent. bp 18:33 Basic Metabolic Panel Sent. bp 18:33 Inserted saline lock: 22 gauge in left forearm, using aseptic technique. Blood bp collected. 18:51 LFT's Sent. bp 18:51 Basic Metabolic Panel Sent. bp 18:51 Magnesium Sent. bp 18:51 NT PRO-BNP Sent. bp 18:51 Troponin HS Sent. bp 19:32 Patient has correct armband on for positive identification. Placed in gown. Bed in low tm6 position. Call light in reach. Side rails up X2. Provided Education on: plan of care. Client placed on continuous cardiac and pulse oximetry monitoring. NIBP monitoring applied. environmental monitoring technician on. Pulse ox on. NIBP on. Door closed. Noise minimized. Lights dimmed. 19:50 Ron Ford MD is Hospitalizing Provider. rt 23:57 No provider procedures requiring assistance completed. Patient admitted, IV remains in tm6 place. 07/05 08:04 Diet tray given. PO fluids given. [email or web address] Administered Medications: 07/04 18:45 Drug: NS 0.9% IV 500 ml IV at bolus once Route: IV; Rate: bolus; Site: left forearm; bp 07/05 05:38 Follow up: IV Status: Completed infusion; IV Intake: 5000ml 8 07/04 18:45 Drug: Metoprolol IVP 5 mg IVP every 5 minutes; Hold for SBP < 100 or HR < 60. x3 Route: bp IVP; Site: left forearm; 18:50 Drug: Metoprolol IVP 5 mg IVP every 5 minutes; Hold for SBP < 100 or HR < 60. x3 Route: bp IVP; Site: left forearm; 20:55 Drug: Metoprolol IVP 5 mg IVP every 5 minutes; Hold for SBP < 100 or HR < 60. x3 Route: tm6 IVP; Site: right forearm; 07/05 05:38 Follow up: Response: No adverse reaction km8 Medication: 07/04 19:32 VIS not applicable for this client. tm6 Intake: 07/05 05:38 IV: 5000ml; Total: 5000ml. km8 Outcome: 07/04 19:51 Decision to Hospitalize by Provider. rt 23:57 Admitted to ER Hold. Please see [facility] for further documentation. tm6 23:57 Condition: stable 23:57 Instructed on the need for admit, 07/05 09:06 Patient left the ED. iw Signatures: Noreen Franco, RN RN Steph Rivera rg4 Jose Knutson, RN RN jb4 Carlos Watts, RN RN bp Traci Zuniga RN RN ap3 Camille Duque, RN RN ha1 Benedicto Sandhu MD MD rt Sis Perez RN RN km8 Willa Lawrence, ALEX RN tm6 Mack Mcpherson jg11
--- NOTE | 2023-07-05 22:21 | P.HP ---
Certification for Inpatient Patient admitted to: Observation With expected LOS: <2 Midnights Practitioner: I am a practitioner with admitting privileges, knowledge of patient current condition, hospital course, and medical plan of care. Services: Services provided to patient in accordance with Admission requirements found in Title 42 Section 412.3 of the Code of Federal Regulations Patient History Date of Service: 07/05/23 Reason for admission: Afib W RVR History of Present Illness: 67 yrs old Male with past medical history of depression hypertension, cyst in the kidney, history of A-fib followed by Dr. Bledsoe came to ER with palpitation Patient presents to the ED with persistence of A-fib with fast rate. Patient was seen in the ED last night, heart was controlled after multiple medications, admission was recommended to him at that time, he declined. States that the A- fib came back. Complains of fatigue, dizziness, shortness of breath. Denies any chest pain. No fever or chills. Patient was assessed in the ER and was noted to have A-fib with RVR initially was treated with Cardizem and rate was controlled with Lantus being admitted for further management Allergies No Known Allergies Allergy (Unverified 08/17/21 16:20) Home medications list reviewed: Yes Home Medications: Amlodipine Besylate [Norvasc] 2.5 mg PO DAILY 08/17/21 Aspirin [Aspirin EC 81 MG] 81 mg PO DAILY 08/17/21 Bupropion *Xl* [Wellbutrin XL*] 75 mg PO DAILY 08/17/21 Dextroamphetamine/Amphetamine [Adderall 30 mg Tablet] 30 mg PO DAILY 08/17/21 Duloxetine [Cymbalta *] 60 mg PO DAILY 08/17/21 Metformin HCl [Glucophage*] 1,000 mg PO DAILY WITH BREAKFAST 08/17/21 Metoprolol Tartrate [Lopressor*] 50 mg PO BID 08/17/21 Tamsulosin [Flomax*] 0.4 mg PO DAILY 08/17/21 Apixaban [Eliquis] 5 mg PO BID #60 tablet 08/18/21 - Past Medical/Surgical History Past Medical History: Reviewed- Non-Contributory -: Hypertension -: DM type II -: Atrial fibrillation -: Arthritis Past Surgical History: Reviewed- Non-Contributory - Family History Family History: Reviewed- Non-Contributory - Family History Father -: Stroke Brother -: Stroke - Social History Smoking Status: Never smoker Alcohol use: Yes Caffeine use: Yes Review of Systems 10-point ROS is otherwise unremarkable Physical Examination - Vital Signs Temperature: 98.4 F Blood Pressure: 130/76 Pulse: 102 Respirations: 18 Pulse Ox (%): 96 - Physical Exam General: Alert, Oriented x3, Cooperative, Mild distress, Obese HEENT: Atraumatic, Normocephalic Neck: Supple, 2+ carotid pulse no bruit, No Thyromegaly Respiratory: Clear to auscultation bilaterally, Crackles/rales Cardiovascular: No edema, No gallops, No murmurs, Irregular heart rate/rhythm Capillary refill: <2 Seconds Gastrointestinal: Soft and benign, W/out hepatosplenomegaly, No tenderness, No masses, No guarding Musculoskeletal: No clubbing, No swelling Integumentary: No rashes, No breakdown Neurological: Normal speech, Normal strength at 5/5 x4 extr, Cranial nerves 3-12 intact, Normal reflexes 2+ Lymphatics: No axilla or inguinal lymphadenopathy - Studies Laboratory Data (last 24 hrs) 07/05/23 07/05/23 18:33 18:33 WBC 12.80 H Hgb 13.9 Hct 41.1 Plt Count 363 Sodium 138 Potassium 4.5 BUN 31 H Creatinine 1.81 H Glucose 137 H Magnesium 2.2 Total Bilirubin 0.2 AST 23 ALT 37 Alkaline Phosphatase 63 Assessment and Plan - Problems (Diagnosis) (1) Atrial fibrillation with RVR Current Visit: Yes Status: Acute Plan: A-fib with RVR Monitor on telemetry Received Cardizem in ER Statin beta-augustina Titrate as needed Cardiology consult Will get an echocardiogram Hypertension Antihypertensives titrated Continue home medications and titrate as needed Hyperlipidemia Continue statin Acute kidney injury on CKD stage II Monitor renal parameters Electrolytes monitor and replace accordingly Diabetes Insulin sliding scale Accu-Chek before every meal and at bedtime Obesity Advise lifestyle modification GI/DVT prophylaxis Advanced directive full code Discharge Plan: Home Plan to discharge in: 48 Hours - Advance Directives Does patient have a Living Will: No Does patient have a Durable POA for Healthcare: No - Code Status/Comfort Care Code Status: Full Code Time Spent Managing Pts Care (In Minutes): 48
[2023-07-05] MEDS ORDERED: ACETAMINOPHEN 325 MG TABLET PO PRN (22:25)
[2023-07-05] MEDS ORDERED: ONDANSETRON 4 MG/2 ML VIAL IV PRN (22:25)
[2023-07-06 00:24] VITALS: BMI 7596.4
[2023-07-06] MEDS ORDERED: METOPROLOL TARTRATE 5 MG/5 ML INJ IV ONE (03:00)
[2023-07-06] MEDS: METOPROLOL TARTRATE 5 MG/5 ML INJ IV PRN (04:37)
[2023-07-06 05:37] LABS: Absolute Basophils 0.1 K/uL (0-0.5); Absolute Eosinophils 0.3 K/uL (0-0.5); Absolute Lymphocytes (CBC) 2.2 K/uL (0.7-4.9); Absolute Monocytes 0.9 K/uL (0.1-1.3); Absolute Neutrophil 6.5 K/uL (1.8-8.0); Basophils % 0.9 % (0-1.3); Eosinophils % 2.9 % (0-4.4); Hematocrit 39.8 % (39.6-49.0); Hemoglobin 13.5 g/dL (13.6-17.9); Lymphocytes % 22.2 % (15.3-44.8); MCH 30.6 pg (27.0-35.0); MCHC 33.9 g/dL (32.0-36.0); MCV 90.4 fL (80-100); MPV 7.7 fL (7.6-11.3); Monocytes % 9.3 % (3.3-12.3); Neutrophils % 64.7 % (41.7-73.7); Nucleated Red Blood Cells % 0.1 % (0-0); Platelets 348 thou/uL (152-406); Red Cell Distribution Width 14.7 % (12.1-15.2)
[2023-07-06 05:46] LABS: Albumin 3.1 g/dL (3.4-5.0); Albumin/Globulin Ratio 0.9 (1.1-1.8); Anion Gap 10.3 mEq/L (5.0-15.0); Bilirubin Total 0.3 mg/dL (0.2-1.0); Globulin 3.6 g/dL (2.3-3.5); Potassium 4.3 mEq/L (3.5-5.1); Protein, Total 6.7 g/dL (6.4-8.2); Troponin High Sensitivity 11.6 pg/mL (<58.9)
[2023-07-06] MEDS ORDERED: TRAMADOL HCL 50 MG TAB ONE (05:54)
[2023-07-06] MEDS: TRAMADOL HCL 50 MG TAB PO PRN (05:55)
[2023-07-06] MEDS: LEVOTHYROXINE SOD 0.125 MG TAB PO SCH (07:30)
[2023-07-06] MEDS ORDERED: METOPROLOL TAR 50 MG TAB ONE (08:08)
[2023-07-06] MEDS ORDERED: GABAPENTIN 300 MG CAP ONE (08:09)
[2023-07-06] MEDS ORDERED: APIXABAN 5 MG TABLET ONE (08:09)
[2023-07-06] MEDS ORDERED: TAMSULOSIN 0.4 MG SR CAP ONE (08:09)
[2023-07-06] MEDS ORDERED: AMLODIPINE 5 MG TAB ONE (08:09)
[2023-07-06] MEDS ORDERED: atenoloL 50 MG TAB ONE (08:10)
[2023-07-06] MEDS ORDERED: DULOXETINE 30 MG CAP PO ONE (08:10)
[2023-07-06] MEDS ORDERED: ALPRAZOLAM 0.25 MG TABLET ONE (08:10)
[2023-07-06] MEDS ORDERED: ASPIRIN EC 81 MG TAB PO ONE (08:10)
[2023-07-06] MEDS: DULOXETINE 20 MG CAP PO SCH (08:52)
[2023-07-06] MEDS: APIXABAN 5 MG TABLET PO SCH (08:52)
[2023-07-06] MEDS: ASPIRIN EC 81 MG TAB PO SCH (08:52)
[2023-07-06] MEDS: METOPROLOL TAR 50 MG TAB PO SCH (08:53)
[2023-07-06] MEDS: GABAPENTIN 300 MG CAP PO SCH (08:54)
[2023-07-06] MEDS: atenoloL 50 MG TAB PO SCH (08:55)
[2023-07-06] MEDS: ALPRAZOLAM 0.25 MG TABLET PO SCH (08:56)
[2023-07-06] MEDS ORDERED: BUPROPION HCL XL 150 MG TAB PO SCH (09:00)
[2023-07-06] MEDS: TAMSULOSIN 0.4 MG SR CAP PO SCH ×2 (09:00→19:35)
[2023-07-06] MEDS ORDERED: ENOXAPARIN 40 MG/0.4 ML SQ SCH (09:00)
[2023-07-06] MEDS: CELECOXIB 100 MG CAPSULE PO SCH (09:00)
[2023-07-06] MEDS: AMLODIPINE 2.5 MG TAB PO SCH ×2 (09:00→18:09)
--- NOTE | 2023-07-06 09:42 | P.PN ---
Subjective Date of Service: 07/06/23 Chief Complaint: Afib W RVR Admitted with A-fib RVR, palpitations, No reported chest pain, reports recent beta-augustina change - Physical Exam General: Alert, Oriented x3, Cooperative, Mild distress, Obese HEENT: Atraumatic, Normocephalic Neck: Supple, 2+ carotid pulse no bruit, No Thyromegaly Respiratory: Clear to auscultation bilaterally, Crackles/rales Cardiovascular: No edema, No gallops, No murmurs, Irregular heart rate/rhythm Capillary refill: <2 Seconds Gastrointestinal: Soft and benign, W/out hepatosplenomegaly, No tenderness, No masses, No guarding Musculoskeletal: No clubbing, No swelling Integumentary: No rashes, No breakdown Neurological: Normal speech, Normal strength at 5/5 x4 extr, Cranial nerves 3-12 intact, Normal reflexes 2+ Lymphatics: No axilla or inguinal lymphadenopathy <Kim Richards - Last Filed: 07/06/23 09:39> Date of Service: 07/06/23 <Abraham Trejo - Last Filed: 07/06/23 17:23> Review of Systems Per HPI <Kim Richards - Last Filed: 07/06/23 09:39> Physical Examination - Vital Signs Temperature: 97.5 F Blood Pressure: 156/96 Pulse: 115 Respirations: 19 Pulse Ox (%): 98 - Studies Laboratory Data (last 24 hrs) 07/05/23 07/05/23 18:33 18:33 WBC 12.80 H Hgb 13.9 Hct 41.1 Plt Count 363 Sodium 138 Potassium 4.5 BUN 31 H Creatinine 1.81 H Glucose 137 H Magnesium 2.2 Total Bilirubin 0.2 AST 23 ALT 37 Alkaline Phosphatase 63 <Kim Richards - Last Filed: 07/06/23 09:39> - Studies Laboratory Data (last 24 hrs) 07/05/23 07/05/23 18:33 18:33 WBC 12.80 H Hgb 13.9 Hct 41.1 Plt Count 363 Sodium 138 Potassium 4.5 BUN 31 H Creatinine 1.81 H Glucose 137 H Magnesium 2.2 Total Bilirubin 0.2 AST 23 ALT 37 Alkaline Phosphatase 63 <Abraham Trejo - Last Filed: 07/06/23 17:23> Assessment And Plan - Plan Assessment and Plan A-fib with RVR uncontrolled Palpitation Chronic anticoagulation Monitor on telemetry Received Cardizem in ER Statin beta-augustina Titrate as needed Cardiology consult Will get an echocardiogram Hypertension Antihypertensives titrated Continue home medications and titrate as needed Hyperlipidemia Continue statin Acute kidney injury on CKD stage II Monitor renal parameters Electrolytes monitor and replace accordingly Diabetes unknown control Insulin sliding scale Accu-Chek before every meal and at bedtime Obesity Advise lifestyle modification Hypothyroidism Resume home GI/DVT prophylaxis Advanced directive full code DVT resume home Eliquis Disposition Home independent prior Discharge Plan: Home - Code Status/Comfort Care Code Status: Full Code Critical Care: No Time Spent Managing PTS Care (In Minutes): 35 <Kim Richards - Last Filed: 07/06/23 09:39> Date of Service: 07/06/23 Patient chart was reviewed and patient was seen and examined. FRANCI history and physical reviewed as well. Agree with the assessment and plan. Patient presented with atrial fibrillation with rapid ventricular response. Most of the MDM was done by myself and plan of care was discussed with FRANCI as well as the patient. Plan to discharge over the next 48 hours if rate control. Cardiology consultation pending. Continue with anticoagulation. <Abraham Trejo - Last Filed: 07/06/23 17:23>
[2023-07-06] MEDS: DILTIAZEM HCL 125 MG/25 ML VIAL IVP ONE ×2 (13:58→17:22)
[2023-07-06] MEDS: dilTIAZem HCL 25 MG/5 ML VIAL IV SCH (15:04)
[2023-07-06] MEDS ORDERED: AMIODARONE HCL 900 MG in Dextrose 5%-Water 482 ML IV SCH (19:00)
[2023-07-06] MEDS: AMIODARONE IN DEXTROSE,ISO-OSM 360 MG/200 ML BAG IV SCH (19:51)
[2023-07-06] MEDS: ALPRAZOLAM 0.5 MG TABLET PO PRN (20:24)
[2023-07-07] MEDS: AMIODARONE IN DEXTROSE,ISO-OSM 360 MG/200 ML BAG IV SCH (01:46)
--- NOTE | 2023-07-07 08:08 | P.PN ---
Subjective Date of Service: 07/07/23 Chief Complaint: Afib W RVR Admitted with A-fib RVR, palpitations, on Eliquis, amiodarone No reported chest pain, reports recent beta-augustina change - Physical Exam General: Alert, Oriented x3, Cooperative, Mild distress, Obese HEENT: Atraumatic, Normocephalic Neck: Supple, 2+ carotid pulse no bruit, No Thyromegaly Respiratory: Clear to auscultation bilaterally, Crackles/rales Cardiovascular: No edema, No gallops, No murmurs, Irregular heart rate/rhythm Capillary refill: <2 Seconds Gastrointestinal: Soft and benign, W/out hepatosplenomegaly, No tenderness, No masses, No guarding Musculoskeletal: No clubbing, No swelling Integumentary: No rashes, No breakdown Neurological: Normal speech, Normal strength at 5/5 x4 extr, Cranial nerves 3-12 intact, Normal reflexes 2+ Lymphatics: No axilla or inguinal lymphadenopathy <Kim Richards - Last Filed: 07/07/23 08:01> Date of Service: 07/07/23 <Abraham Trejo - Last Filed: 07/08/23 00:30> Review of Systems Per HPI <Kim Richards - Last Filed: 07/07/23 08:01> Physical Examination - Vital Signs Temperature: 96.8 F Blood Pressure: 136/98 Pulse: 87 Respirations: 18 Pulse Ox (%): 99 <Kim Richards - Last Filed: 07/07/23 08:01> Assessment And Plan - Plan Assessment and Plan A-fib with RVR uncontrolled Palpitation Chronic anticoagulation Monitor on telemetry Received Cardizem in ER Statin beta-augustina Titrate as needed Cardiology consulted Dr Couch Will get an echocardiogram ordered Hypertension Antihypertensives titrated Continue home medications and titrate as needed Hyperlipidemia Continue statin Acute kidney injury on CKD stage II Monitor renal parameters Electrolytes monitor and replace accordingly Diabetes unknown control Insulin sliding scale Accu-Chek before every meal and at bedtime Obesity Advise lifestyle modification Hypothyroidism Resume home GI/DVT prophylaxis Advanced directive full code DVT resume home Eliquis Disposition Home independent prior Discharge Plan: Home - Code Status/Comfort Care Code Status: Full Code Critical Care: No Time Spent Managing PTS Care (In Minutes): 35 <Kim Richards - Last Filed: 07/07/23 08:01> Date of Service: 07/07/23 Patient chart was reviewed and patient was seen and examined. FRANCI history and physical reviewed as well. Agree with the assessment and plan. Patient presented with atrial fibrillation with rapid ventricular response. Patient started on amiodarone drip. The patient not cardioverted with amiodarone drip medically then will electrically cardiovert in a.m. with TIFFANY. Patient will be NPO after midnight. Most of the MDM was done by myself and plan of care was discussed with FRANCI as well as the patient. Plan to do TIFFANY with cardioversion in the AM. Cardiology consultation appreciated. Continue with anticoagulation. <Abraham Trejo - Last Filed: 07/08/23 00:30>
--- NOTE | 2023-07-07 16:35 | CON ---
Date of Consultation: 07/07/2023 Reason For Consultation: Atrial fibrillation with rapid ventricular response. History Of Present Illness: A 67-year-old male with history of hypertension, atrial fibrillation, ch ronic kidney disease, who presented with palpitations and fast heart rate, found to be in atrial fibr illation with rapid ventricular response and was started on IV amiodarone and his heart rate is elder r, but still on occasions it runs above 120 just with minimal activities along with shortness of renea th on exertion. Denies having any chest pain. Past Medical History: As outlined above in the HPI. Medications: Refer to reconciliation sheet for detailed list. Allergies: NO KNOWN DRUG ALLERGIES. Family History: No premature coronary artery disease or cancer. Social History: He does not smoke or drink. Does not use any drugs. Review of Systems: All systems reviewed and they were negative except as mentioned in the HPI. Physical Examination: Vital Signs: Reviewed. Head and Neck: Pupils are equal, reactive to light. Intact eye movements. No JVD. No cervical lym phadenopathy. Neck is supple. Thyroid is not enlarged. Lungs: Clear to auscultation bilaterally. No rhonchi, rales, or crackles. No accessory muscle use. Heart: Irregularly irregular. No extra sounds. Abdomen: Soft, nontender. Bowel sounds positive. No organomegaly. No masses or hernia. No rigidi ty or rebound. Extremities: No edema, clubbing, or cyanosis. Intact pulses. Skin: No rash. No nodule. Neurologic: Alert, awake, oriented x3. No acute focal deficits appreciated. Lymph Nodes: No cervical or axillary lymphadenopathy. Investigations: BUN 26, creatinine 1.32. Cardiac enzymes x3 are negative. NT-proBNP 2882. Assessment/recommendation: 1.Atrial fibrillation with rapid ventricular response. Continue amiodarone for full 24 hours load a nd then switch to 100 mg twice a day. Continue metoprolol 50 mg twice a day and use Cardizem IV as n eeded for rate control. Keep n.p.o. past midnight and then do a TIFFANY cardioversion and continue Eliqu is 5 mg twice a day. 2.Hypertension. Blood pressure is controlled. Continue current home medications. 3.Dyslipidemia. Recommend 40 mg of Lipitor q.h.s. 4.Acute renal failure, resolving nicely. Continue to monitor BUN and creatinine. SR/MODL Voice ID: [id number] Report ID: [id number]
[2023-07-08] MEDS: AMIODARONE HCL 200 MG TAB PO SCH (01:30)
--- NOTE | 2023-07-08 09:42 | P.DS ---
Admission Date: 07/07/23 Discharge Date: 07/08/23 Disposition: ROUTINE DISCHARGE Discharge Condition: GOOD Reason for Admission: Afib W RVR Consultations: Dr. Couch Procedures: Planned Cardioversion cancelled 2nd to rhythm change to NSR at 72bpm. Brief History of Present Illness: 67 yrs old Patient with past medical history of depression, hypertension, cyst in the kidney, history of A-fib followed by Dr. Bledsoe. Changed from years long treatment with Lopressor to Atenolol less than 6mo ago. Patient presents to the ED with persistence of A-fib with fast rate. Patient was seen in the ED last night, heart was controlled after multiple medications, admission was recommended to him at that time, he declined. States that the A-fib came back. Complains of fatigue, dizziness, shortness of breath. Denies any chest pain. No fever or chills. Admitted on Amiodarone drip. Hospital Course: Mr. Romero converted to NSR prior to planned TIFFANY cardioversion. Vital Signs/Physical Exam: Temp Pulse Resp BP Pulse Ox 96.8 F 75 16 131/79 96 07/08/23 04:00 07/08/23 09:23 07/08/23 04:00 07/08/23 09:23 07/08/23 04:00 General: Alert, In no apparent distress, Oriented x3 HEENT: Atraumatic, Normocephalic, PERRLA Neck: Supple, 2+ carotid pulse no bruit Respiratory: Clear to auscultation bilaterally Cardiovascular: Normal pulses, Other (monitor showed rate controlled afib at 0630, pt converted to NSR at 72bpm post visit and TIFFANY cancelled), Irregular heart rate/rhythm Capillary refill: <2 Seconds Gastrointestinal: Soft and benign Musculoskeletal: No clubbing, No swelling Integumentary: No rashes Neurological: Normal speech, Normal tone Lymphatics: No axilla or inguinal lymphadenopathy External genitalia: Deferred Rectal: Deferred Laboratory Data at Discharge: WBC 10.10 thou/uL (4.3-10.9) 07/06/23 05:20 Hgb 13.5 g/dL (13.6-17.9) L 07/06/23 05:20 Hct 39.8 % (39.6-49.0) 07/06/23 05:20 Plt Count 348 thou/uL (152-406) 07/06/23 05:20 Sodium 137 mEq/L (136-145) 07/06/23 05:20 Potassium 4.3 mEq/L (3.5-5.1) 07/06/23 05:20 BUN 26 mg/dL (7-18) H 07/06/23 05:20 Creatinine 1.32 mg/dL (0.70-1.30) H 07/06/23 05:20 Glucose 119 mg/dL (74-106) H 07/06/23 05:20 Magnesium 2.2 mg/dL (1.6-2.4) 07/05/23 18:33 Total Bilirubin 0.3 mg/dL (0.2-1.0) 07/06/23 05:20 AST 19 U/L (15-37) 07/06/23 05:20 ALT 34 U/L (16-61) 07/06/23 05:20 Alkaline Phosphatase 56 U/L (45-117) 07/06/23 05:20 Home Medications: Amlodipine Besylate [Norvasc] 2.5 mg PO DAILY 08/17/21 Aspirin [Aspirin EC 81 MG] 81 mg PO DAILY 08/17/21 Bupropion *Xl* [Wellbutrin XL*] 150 mg PO DAILY 08/17/21 Dextroamphetamine/Amphetamine [Adderall 30 mg Tablet] 30 mg PO DAILY 08/17/21 Duloxetine [Cymbalta *] 30 mg PO DAILY 08/17/21 Metformin HCl [Glucophage*] 1,000 mg PO DAILY WITH BREAKFAST 08/17/21 Tamsulosin [Flomax*] 0.4 mg PO DAILY 08/17/21 ALPRAZolam [Xanax*] 0.25 mg PO DAILY 07/05/23 Atenolol [Tenormin] 50 mg PO BID 07/05/23 Celecoxib 200 mg PO DAILY 07/05/23 Chlorzoxazone 500 mg PO BID 07/05/23 Dextroamphetamine/Amphetamine [Adderall Xr 30 mg Capsule] 30 mg PO DAILY 07/05/23 Diclofenac Sodium [Voltaren] 50 mg PO BID 07/05/23 Gabapentin 300 mg PO TID 07/05/23 Levothyroxine [Synthroid*] 0.25 mg PO DAILY 07/05/23 Semaglutide [Ozempic] 0.25 mg SQ SEECOM 07/05/23 Tramadol HCl [Ultram] 1 tab PO Q6H PRN 07/05/23 methocarbamoL [Methocarbamol] 500 mg PO Q6H 07/05/23 Physician Discharge Instructions: Okay to DC IV and DC home Follow-up with primary care provider in 1 to 2 weeks Follow-up with cardiology in 1 to 2-week Please call the inpatient unit for any questions or concerns regarding hospital stay Return to the ER for worsening symptoms Diet: AHA Activity: Ad kateryna Followup: Bunny Guajardo MD [Primary Care Provider] -
[2023-07-08 13:18] VITALS: O2SAT 95
[2023-07-08 13:56] VITALS: BP 130/70; TEMP 97.3
== END 2023-07-08 16:26 | disposition home or self-care (01) | DRG 309 ==
LOC: ER 18:12 → ERHOLD 22:22 → 4TH 07-06 08:26 → OBSVTOIN 07-07 16:43
PROVIDERS: ADMIT Family Medicine; ATTEND Hospitalist
DX: I48.91 Unspecified atrial fibrillation (principal); N17.9 Acute kidney failure, unspecified; Z68.43 Body mass index [BMI] 50.0-59.9, adult; E66.01 Morbid (severe) obesity due to excess calories; N28.1 Cyst of kidney, acquired; E78.5 Hyperlipidemia, unspecified; E03.9 Hypothyroidism, unspecified; I12.9 Hypertensive chronic kidney disease with stage 1 through stage 4 chronic kidney disease, or unspecified chronic kidney disease; N18.2 Chronic kidney disease, stage 2 (mild); E11.22 Type 2 diabetes mellitus with diabetic chronic kidney disease; M19.90 Unspecified osteoarthritis, unspecified site; Z79.82 Long term (current) use of aspirin; Z79.01 Long term (current) use of anticoagulants; Z79.84 Long term (current) use of oral hypoglycemic drugs; Z79.899 Other long term (current) drug therapy; Z79.890 Hormone replacement therapy
CPT/HCPCS: 36415; 80048; 80053; 80076; 83735; 83880; 84443; 84484; 85025; 93005; 94760; 99285; G0378; J0282; J7040